=== PATIENT | female | born 1945 | race Caucasian/White ===

== ENCOUNTER → 2016-08-11 | Outpatient (CLI) | payer OTHER, MEDICARE ==
[~2016-08-11] MED LIST: AMOX875T PO; ASPI-232 PO; CALCTAB5 PO; DIPH-437 PO; GABA-112 PO; GABA-113 PO; IBUP-1050 PO; NRN100; SIMV5TAB2 PO
--- NOTE | 2016-08-11 15:51 | DIAGNOSTIC IMAGING REPORT ---
CT OF THE CHEST WITHOUT IV CONTRAST CLINICAL HISTORY: Follow-up pulmonary nodule. COMPARISON STUDY: Chest CT March 29, 2016 and PET/CT April 25, 2016. CT DOSE: 165.77 mGycm TECHNIQUE: Axial images of the chest were obtained without IV contrast. Images were reviewed in the axial, sagittal, and coronal planes. IV contrast was not administered for this examination. FINDINGS: No enlarged axillary, mediastinal or hilar lymph nodes are present. The size of the heart is at the upper limits of normal. There are postsurgical findings within the left breast and left axilla. The 2.3 cm left apical subpleural irregular opacity with architectural distortion is unchanged since CT of March 29, 2016. The previously described left superior hilar nodular foci on PET/CT of April 25, 2016 are less conspicuous on this exam and have likely resolved. The appearance of the chest is unchanged since initial chest CT. There is no pneumothorax or pleural effusion. Bony thorax and upper abdomen are unremarkable. There are old left-sided rib deformities. IMPRESSION: Stable 2.3 cm irregular subpleural left apical opacity which favors scarring. The additional nodular foci shown on recent PET/CT are less conspicuous and have likely resolved. The findings on this exam are likely benign. A follow chest CT in 6 months to ensure stability is recommended. Electronically signed by: Chano Acosta M.D. 08/11/2016 3:49 PM Dictated Date/Time: 08/11/2016 3:39 PM
== END | disposition home or self-care (01) ==
LOC: C.CTS 15:27
PROVIDERS: ATTEND Internal Medicine Pulmonary Disease
DX: R91.1 Solitary pulmonary nodule (principal); R91.8 Other nonspecific abnormal finding of lung field

== ENCOUNTER 2016-09-04 18:02 | Emergency (ER) | payer OTHER, MEDICARE ==
[~2016-09-04 18:02] MED LIST changes: -AMOX875T PO; -GABA-112 PO; -GABA-113 PO; -IBUP-1050 PO
[2016-09-04 18:03] VITALS: TEMP 36.2
[2016-09-04] MEDS ORDERED: SODIUM CHLORIDE 0.9% 1000ML 1,000 ML IV STA (18:11)
[2016-09-04] MEDS ORDERED: ONDANSETRON INJ 2 MG/ML 2 ML VIAL IV STA (18:11)
[2016-09-04 18:16] VITALS: O2SAT 97
--- NOTE | 2016-09-04 18:19 | EMERGENCY ROOM VISIT NOTE ---
History Report prepared by Julisa: Toñito Fields Under the Supervision of: Dr. Wellington Encarnacion M.D. First contact with patient: 18:04 Chief Complaint: DIZZY Stated Complaint: DIZZY History of Present Illness The patient is a 71 year old female who presents to the Emergency Room with complaints of lightheadedness that began this evening. She was sitting down with her eating dinner when she began to sweat. She knew that she was then going to pass out soon due to her having experienced this in the past. She then walked outside to her car before she lost consciousness. When she entered her car, she passed out and then when she awoke, she vomited. She was unconscious for about 60 seconds. She denies any room spinning or movement sensation. She notes when this happens, she gets mildly short of breath. She denies any chest pain. The last time this happened to her was in November of 2015. She notes that she has been at baseline with her health recently, and she is unsure what may have caused this episode. She takes Gabapentin regularly, and has subclavian steel syndrome. Source of History: patient, spouse/significant other Onset: This evening Position: other (global) Symptom Intensity: moderate Quality: other (Lightheadedness) Timing: constant Associated Symptoms: + LOC, + SOB, + vomiting, No chest pain Review of Systems See HPI for pertinent positives & negatives. A total of 10 systems reviewed and were otherwise negative. Past Medical & Surgical Medical Problems: (1) Breast cancer (2) Hyperlipidemia (3) Radicular pain of left upper extremity Surgical Problems: (1) H/O partial mastectomy Family History Patient reports no known family medical history. Social History Smoking Status: Never Smoker Alcohol Use: occasionally Drug Use: none Marital Status: Housing Status: lives with significant other Occupation Status: employed Current/Historical Medications Scheduled Aspirin (Aspir-81), 1 TAB PO DAILY Ibuprofen (Advil), 200 MG PO prn Simvastatin (Zocor), 5 MG PO QPM Scheduled PRN Acetaminophen/Diphenhydramine (Tylenol Pm), 1 TAB PO HS PRN for prn Gabapentin (Neurontin), 300 MG PO 2-3xsday PRN for Pain Allergies Coded Allergies: No Known Allergies (Unverified , 03/28/16) Physical Exam Vital Signs Date Time Temp Pulse Resp B/P Pulse Ox O2 Delivery O2 Flow Rate FiO2 4/30/17 21:49 68 18 133/71 96 Room Air 09/04/16 20:41 63 136/69 95 145/86 73 135/67 09/04/16 20:05 68 16 120/69 96 Room Air 09/04/16 18:16 97 Room Air 09/04/16 18:09 63 09/04/16 18:03 36.2 72 18 113/71 96 Room Air Physical Exam GENERAL: Patient is in no acute distress. HEENT: No acute trauma, normocephalic atraumatic, mucous membranes moist, no nasal congestion, no scleral icterus. Pupils are equal and reactive to light. NECK: No stridor, no adenopathy, no meningismus, trachea is midline. LUNGS: Clear to auscultation bilaterally, no wheeze, no rhonchi, breath sounds equal. HEART: Without murmurs gallops or rubs, regular rate and rhythm. ABDOMEN: Soft, nontender, bowel sounds positive, no hernias, no peritonitis. EXTREMITIES: No cyanosis or edema, full range of motion of all the joints without pain or difficulty, no signs for acute trauma. NEUROLOGIC: Oriented x 3, no acute motor or sensory deficits, no focal weakness. SKIN: Sweaty, pale, no jaundice or rash. Medical Decision & Procedures ER Provider Diagnostic Interpretation: X-ray results as stated below per interpretation by me and the radiologist: CHEST ONE VIEW PORTABLE CLINICAL HISTORY: Altered mental status. Weakness. COMPARISON STUDY: Chest CT August 11, 2016. FINDINGS: Left axillary surgical clips are noted. Linear left apical opacity is unchanged and favors scarring. There is no evidence of pulmonary edema. Cardiac size is normal. Mediastinal contours are normal. No consolidation is identified. IMPRESSION: No acute cardiopulmonary findings. Electronically signed by: Chano Acosta M.D. 09/04/2016 6:30 PM Dictated Date/Time: 09/04/2016 6:29 PM Laboratory Results 09/04/16 18:16 Red Blood Count 4.44, Mean Corpuscular Volume 98.2, Mean Corpuscular Hemoglobin 32.9, Mean Corpuscular Hemoglobin Concent 33.5, Mean Platelet Volume 9.5, Neutrophils (%) (Auto) 59.3, Lymphocytes (%) (Auto) 31.3, Monocytes (%) (Auto) 8.2, Eosinophils (%) (Auto) 0.9, Basophils (%) (Auto) 0.2, Neutrophils # (Auto) 5.55, Lymphocytes # (Auto) 2.93, Monocytes # (Auto) 0.77, Eosinophils # (Auto) 0.08, Basophils # (Auto) 0.02 09/04/16 18:16 Test 09/04/16 18:16 09/04/16 20:04 White Blood Count 9.36 K/uL (4.8-10.8) Red Blood Count 4.44 M/uL (4.2-5.4) Hemoglobin 14.6 g/dL (12.0-16.0) Hematocrit 43.6 % (37-47) Mean Corpuscular Volume 98.2 fL (80-100) Mean Corpuscular Hemoglobin 32.9 pg (25-34) Mean Corpuscular Hemoglobin Concent 33.5 g/dl (32-36) Platelet Count 241 K/uL (130-400) Mean Platelet Volume 9.5 fL (7.4-10.4) Neutrophils (%) (Auto) 59.3 % Lymphocytes (%) (Auto) 31.3 % Monocytes (%) (Auto) 8.2 % Eosinophils (%) (Auto) 0.9 % Basophils (%) (Auto) 0.2 % Neutrophils # (Auto) 5.55 K/uL (1.4-6.5) Lymphocytes # (Auto) 2.93 K/uL (1.2-3.4) Monocytes # (Auto) 0.77 K/uL (0.11-0.59) Eosinophils # (Auto) 0.08 K/uL (0-0.5) Basophils # (Auto) 0.02 K/uL (0-0.2) RDW Standard Deviation 45.4 fL (36.4-46.3) RDW Coefficient of Variation 12.6 % (11.5-14.5) Immature Granulocyte % (Auto) 0.1 % Immature Granulocyte # (Auto) 0.01 K/uL (0.00-0.02) Anion Gap 9.0 mmol/L (3-11) Estimated GFR () 87.2 Estimated GFR (Non- 75.2 BUN/Creatinine Ratio 17.7 (10-20) Calcium Level 9.2 mg/dl (8.5-10.1) Magnesium Level 2.0 mg/dl (1.8-2.4) Total Bilirubin 0.3 mg/dl (0.2-1) Aspartate Amino Transf (AST/SGOT) 25 U/L (15-37) Alanine Aminotransferase (ALT/SGPT) 28 U/L (12-78) Alkaline Phosphatase 72 U/L (45-117) Total Protein 6.7 gm/dl (6.4-8.2) Albumin 3.8 gm/dl (3.4-5.0) Globulin 2.9 gm/dl (2.5-4.0) Albumin/Globulin Ratio 1.3 (0.9-2) Thyroid Stimulating Hormone (TSH) 5.170 uIu/ml (0.300-4.500) Free Thyroxine 1.08 ng/dl (0.80-1.60) Bedside Troponin I 0.000 ng/ml (0-0.045) Laboratory results reviewed by me. Medications Administered Medications (Trade) Dose Ordered Sig/Mai Route Start Time Stop Time Status Last Admin Dose Admin Ondansetron HCl 4 mg 4 mg NOW STAT IV 09/04/16 18:11 09/04/16 18:13 DC 09/04/16 18:24 4 MG Sodium Chloride (Nss 1000ml) 1,000 ml @ 999 mls/hr Q1H1M STAT IV 09/04/16 18:11 09/04/16 19:13 DC 09/04/16 18:24 999 MLS/HR ECG Indication: syncope Rate (beats per minute): 61 Rhythm: normal sinus Findings: no acute ischemic change, no ectopy ED Course 1803: The patient was evaluated in room C10. A complete history and physical exam was performed. 1810: Ordered Sodium Chloride 1000 ml @ 999 mls/hr IV, Zofran Inj 4 mg IV 2044: After reevaluation, the patient feels significantly better. 2053: The patient's orthostatic vital signs were negative. 2129: The patient's urine drip was negative for infection. 2139: Reevaluated the patient. Discussed results and discharge instructions: She verbalized understanding and agreement. The patient is ready for discharge. Medical Decision Differential diagnosis includes but is not limited to hypotension, dysrhythmia, cardiac ischemia, anemia, electrolyte imbalance, dehydration, UTI, and vertigo. There is no leukocytosis or concerning anemia. No significant electrolyte abnormality, kidney failure or hepatitis. The patient appears to be in a euthyroid state. A urine dip does not show evidence for infection. Orthostatic vital signs are negative. EKG shows a normal sinus rhythm, no acute ischemia. Cardiac enzyme testing 2 is not consistent with acute cardiac injury. Chest film shows no pneumonia, mediastinal widening or CHF. On exam, there were no focal neurologic deficits. The patient received IV saline and IV Zofran, she feels markedly better and is now without any complaints. The cause for this presentation is unclear. She has had similar issues in the past. I do feel she is stable for discharge with outpatient follow-up. Impression Primary Impression: Near syncope Additional Impression: Vomiting Scribe Attestation The scribe's documentation has been prepared under my direction and personally reviewed by me in its entirety. I confirm that the note above accurately reflects all work, treatment, procedures, and medical decision making performed by me. Departure Information Dispostion Home / Self-Care Referrals Yana Castro D.O. (PCP) Forms HOME CARE DOCUMENTATION FORM, IMPORTANT VISIT INFORMATION Patient Instructions My [facility] Additional Instructions fluids rest see karina meade this week for a recheck return if worsening testing today was all ok Problem Qualifiers
[2016-09-04 18:30] LABS: BASO % 0.2 %; BASO ABS # 0.02 K/uL (0-0.2); COMPLETE YES; EOS % 0.9 %; HEMATOCRIT 43.6 % (37-47); IG% 0.1 %; LYMPH % 31.3 %; LYMPH ABS # 2.93 K/uL (1.2-3.4); MEAN CELL VOLUME 98.2 fL (80-100); MEAN CORPUSCULAR HEMOGLOBIN 32.9 pg (25-34); MEAN CORPUSCULAR HGB CONC 33.5 g/dl (32-36); MEAN PLATELET VOLUME 9.5 fL (7.4-10.4); MONO % 8.2 %; NEUT % 59.3 %; PLATELET COUNT 241 K/uL (130-400); RED BLOOD COUNT 4.44 M/uL (4.2-5.4); WHITE BLOOD COUNT 9.36 K/uL (4.8-10.8)
--- NOTE | 2016-09-04 18:31 | DIAGNOSTIC IMAGING REPORT ---
CHEST ONE VIEW PORTABLE CLINICAL HISTORY: Altered mental status. Weakness. COMPARISON STUDY: Chest CT August 11, 2016. FINDINGS: Left axillary surgical clips are noted. Linear left apical opacity is unchanged and favors scarring. There is no evidence of pulmonary edema. Cardiac size is normal. Mediastinal contours are normal. No consolidation is identified. IMPRESSION: No acute cardiopulmonary findings. Electronically signed by: Chano Acosta M.D. 09/04/2016 6:30 PM Dictated Date/Time: 09/04/2016 6:29 PM
[2016-09-04 18:52] LABS: ALT/SGPT 28 U/L (12-78); AST/SGOT 25 U/L (15-37); BLOOD UREA NITROGEN 14 mg/dl (7-18); BUN/CREATININE RATIO 17.7 (10-20); CALCIUM 9.2 mg/dl (8.5-10.1); CARBON DIOXIDE 29 mmol/L (21-32); CHLORIDE 107 mmol/L (98-107); GLUCOSE 94 mg/dl (70-99); POTASSIUM 3.5 mmol/L (3.5-5.1); SODIUM 145 mmol/L (136-145)
[2016-09-04] MEDS ORDERED: GABA-113 PO (18:57)
[2016-09-04] MEDS ORDERED: IBUP-1050 PO (18:57)
[2016-09-04 19:03] LABS: ALB/GLOB RATIO 1.3 (0.9-2); ALKALINE PHOSPHATASE 72 U/L (45-117)
[2016-09-04 21:49] VITALS: BP 133/71; PULSE 68; O2SAT 96
[2017-02-03] MEDS ORDERED: AMOX875T PO (18:19)
== END 2016-09-04 21:53 | disposition home or self-care (01) ==
LOC: C.EDB 18:03 → C.EDC 21:53
DX: R55 Syncope and collapse (principal); R11.10 Vomiting, unspecified; E78.5 Hyperlipidemia, unspecified; Z85.3 Personal history of malignant neoplasm of breast; Z90.10 Acquired absence of unspecified breast and nipple; Z79.82 Long term (current) use of aspirin; Z79.899 Other long term (current) drug therapy

== ENCOUNTER → 2017-01-17 | Outpatient (CLI) | payer OTHER, MEDICARE ==
[~2017-01-17] MED LIST changes: +AMOX875T PO; -CALCTAB5 PO; +GABA-112 PO; +GABA-113 PO; +IBUP-1050 PO; -NRN100
--- NOTE | 2017-01-18 14:20 | MAMMOGRAPHY REPORT ---
BILATERAL DIGITAL SCREENING MAMMOGRAM TOMOSYNTHESIS WITH CAD: 01/17/2017 CLINICAL HISTORY: Routine screening. Patient has no complaints. TECHNIQUE: Breast tomosynthesis in addition to standard 2D mammography was performed. Current study was also evaluated with a Computer Aided Detection (CAD) system. COMPARISON: Comparison is made to exams dated: 12/15/2015 mammogram, 06/17/2014 mammogram, 05/29/2012 ma mmogram, 01/18/2011 mammogram, 01/05/2010 mammogram - [facility], and 12/16/2008. BREAST COMPOSITION: There are scattered areas of fibroglandular density in both breasts. FINDINGS: There are stable postsurgical changes in the left breast, with skin irregularity and asymm etry of the size of the breasts. There are benign rim and dystrophic calcifications in the breasts. No new suspicious mass, architectural distortion or cluster of microcalcifications is seen. IMPRESSION: ACR BI-RADS CATEGORY 1: NEGATIVE There is no mammographic evidence of malignancy. A 1 year screening mammogram is recommended. The pa tient will receive written notification of the results. Approximately 10% of breast cancers are not detected with mammography. A negative mammographic report should not delay biopsy if a clinically suggestive mass is present. Juliette Lott M.D. ay/:01/17/2017 17:53:50 [employer] Manager: Sudha HDEZ)(Nelly), [facility] letter sent: Normal 1/2 BI-RADS Code: ACR BI-RADS Category 1: Negative
== END | disposition home or self-care (01) ==
LOC: C.MAMM 11:50
PROVIDERS: ATTEND Family Medicine
DX: Z12.31 Encounter for screening mammogram for malignant neoplasm of breast (principal); Z85.3 Personal history of malignant neoplasm of breast

== ENCOUNTER 2017-01-31 11:25 | Inpatient (IN) | payer OTHER, MEDICARE ==
[~2017-01-31] VITALS: Ht 160 cm; Wt 58.7 kg
[~2017-01-31 11:25] MED LIST changes: -AMOX875T PO; -GABA-112 PO
[2017-01-31] MEDS ORDERED: SODIUM CHLORIDE 0.9% 1000ML 1,000 ML IV STA (12:01)
[2017-01-31 12:05] LABS: BASO % 0.4 %; BASO ABS # 0.03 K/uL (0-0.2); COMPLETE YES; EOS % 1.4 %; HEMATOCRIT 45.4 % (37-47); IG% 0.3 %; LYMPH % 28.2 %; LYMPH ABS # 1.98 K/uL (1.2-3.4); MEAN CELL VOLUME 95.2 fL (80-100); MEAN CORPUSCULAR HEMOGLOBIN 32.1 pg (25-34); MEAN CORPUSCULAR HGB CONC 33.7 g/dl (32-36); MEAN PLATELET VOLUME 9.6 fL (7.4-10.4); MONO % 8.1 %; NEUT % 61.6 %; PLATELET COUNT 237 K/uL (130-400); RED BLOOD COUNT 4.77 M/uL (4.2-5.4); WHITE BLOOD COUNT 7.03 K/uL (4.8-10.8)
--- NOTE | 2017-01-31 12:10 | DIAGNOSTIC IMAGING REPORT ---
CHEST ONE VIEW PORTABLE CLINICAL HISTORY: syncopal dyspnea COMPARISON STUDY: 09/04/2016 FINDINGS: The bones soft tissues and hemidiaphragms are normal. The cardiomediastinal silhouette is normal. The lungs are clear. The pulmonary vasculature is normal. Mild stable emphysematous change. Stable left axillary dissection postoperative change. IMPRESSION: No acute process. The above report was generated using voice recognition software. It may contain grammatical, syntax or spelling errors. Electronically signed by: Deny Luther M.D. 01/31/2017 12:09 PM Dictated Date/Time: 01/31/2017 12:08 PM
--- NOTE | 2017-01-31 12:26 | EMERGENCY ROOM VISIT NOTE ---
History Report prepared by Julisa: Renetta Padilla Under the Supervision of: Dr. Tobi Ocampo M.D. First contact with patient: 11:49 Chief Complaint: SYNCOPE (NEAR SYNCOPE) Stated Complaint: SYNCOPAL EPISODE History of Present Illness The patient is a 71 year old female who presents to the Emergency Room with complaints of an episode of syncope occurring [employer]. The patient was meeting with someone at [facility] this morning. Around 10am she started to feel lightheaded and nauseated. She had some lower abdominal cramping and felt like she might need to have a bowel movement. The patient went into the bathroom of [facility] and her symptoms persisted. She sat down on the ground because she felt like she was going to pass out. She thinks that she did lose consciousness. She did not fall because she was already on the ground. Someone came into the bathroom and found her and called an ambulance. The patient was brought to the ED for further evaluation. She states that this has happened in the past and that this is the third episode she has experienced. She had cold symptoms over the weekend but was feeling fine today. She denies fevers, headache, numbness, weakness, chest pain, shortness of breath, hematochezia, and melena. She was not incontinent during her episode today and did not bite her tongue. She does not have any history of seizures. The patient states that she is feeling better now but is experiencing some nausea. Source of History: patient, spouse/significant other Onset: [employer] Position: other (global) Quality: other (syncope) Timing: other (episode) Associated Symptoms: + LOC, + nausea, + abdominal pain, No fevers, No headache, No chest pain, No SOB, No melena, No hematochezia, No weakness, No numbness Note: Pt was feeling lightheaded. Pt denies incontinence. Review of Systems See HPI for pertinent positives & negatives. A total of 10 systems reviewed and were otherwise negative. Past Medical & Surgical Medical Problems: (1) Breast cancer (2) Hyperlipidemia (3) Radicular pain of left upper extremity (4) Subclavian steal syndrome (5) Syncope and collapse Surgical Problems: (1) H/O partial mastectomy Old medical records were reviewed. Nurse's notes were reviewed and I agree with. Family History Patient reports no known family medical history. Social History Smoking Status: Never Smoker Alcohol Use: occasionally Drug Use: none Marital Status: Housing Status: lives with significant other Occupation Status: employed Current/Historical Medications Scheduled Aspirin (Aspir-81), 1 TAB PO DAILY Gabapentin (Neurontin), 100 MG PO DAILY Simvastatin (Zocor), 5 MG PO DAILY Allergies Coded Allergies: No Known Allergies (Unverified , 01/31/17) Physical Exam Vital Signs Date Time Temp Pulse Resp B/P (MAP) Pulse Ox O2 Delivery O2 Flow Rate FiO2 01/31/17 13:32 54 18 138/88 96 Room Air 01/31/17 12:27 60 16 116/77 99 Room Air 01/31/17 11:35 99 Room Air 01/31/17 11:33 71 01/31/17 11:30 36.4 60 20 140/76 97 Room Air Physical Exam General: Well developed well nourished mildly ill appearing older female in no acute distress, breathing comfortably on room air. Normal speech. Alert and oriented x3, answering questions appropriately. HEENT: Normal cephalic atraumatic. Pupils are equal round and reactive to light. Extraocular movements are intact. Oropharynx is pink with moist mucous membranes. No swelling of the mouth lips or tongue. Neck: Supple with a midline trachea. No meningeal signs or stiffness, no JVD or bruits. No Stridor. Chest: Clear to auscultation bilaterally. No wheezes or rhonchi. No increased work of breathing. Heart: regular rate and rhythm. Abdomen: Soft nontender, nondistended without rebound guarding or rigidity. Extremities: No cyanosis clubbing or edema. No calf tenderness or assymetry Spine/Back. Non tender to palpation. No CVA tenderness Skin: Good turgor without rashes. Neurologic exam: Cranial nerves two through 12 are intact. Motor and sensation are intact and symmetrical throughout. Medical Decision & Procedures ER Provider Diagnostic Interpretation: Radiology results as stated below per my review and radiologist interpretation: CHEST ONE VIEW PORTABLE CLINICAL HISTORY: syncopal dyspnea COMPARISON STUDY: 09/04/2016 FINDINGS: The bones soft tissues and hemidiaphragms are normal. The cardiomediastinal silhouette is normal. The lungs are clear. The pulmonary vasculature is normal. Mild stable emphysematous change. Stable left axillary dissection postoperative change. IMPRESSION: No acute process. The above report was generated using voice recognition software. It may contain grammatical, syntax or spelling errors. Electronically signed by: Deny Luther M.D. 01/31/2017 12:09 PM Dictated Date/Time: 01/31/2017 12:[address] HEAD WITHOUT CONTRAST (CT) CLINICAL HISTORY: weakness, syncope COMPARISON STUDY: No previous studies for comparison. TECHNIQUE: Axial CT of the brain is performed from the vertex to the skull base. IV contrast was not administered for this examination. A dose lowering technique was utilized adhering to the principles of ALARA. CT DOSE: 638.56 mGycm FINDINGS: No intra or extra-axial mass lesions are visualized. There is no CT evidence of acute cortical infarction. There is no evidence of midline shift. There is no acute hemorrhage. No calvarial fractures are visualized. There are patchy white matter hypodensities likely on a small vessel basis. There is no evidence of pathologic ventricular dilatation. There is no evidence of acute sinusitis IMPRESSION: No acute intracranial findings Electronically signed by: Mat Corrales M.D. 01/31/2017 2:41 PM Dictated Date/Time: 01/31/2017 2:40 PM ABD/PELVIS IV CONTRAST ONLY CT DOSE: 492.39 mGycm HISTORY: Pain. Nausea. eval for colitis TECHNIQUE: Multiaxial CT images of the abdomen and pelvis were performed following the use of intravenous contrast. A dose lowering technique was utilized adhering to the principles of ALARA. COMPARISON STUDY: None. FINDINGS: Lung bases are clear. Fatty infiltration of liver. Anterior aspect of the right hepatic lobe shows a region of diminished density measuring 3.2 x 1.8 cm. This possibly relates to a region of fatty replacement and/or fat sparing. It potentially is seen in retrospect on a PET scan dated 04/25/2016. The colonic bowel pattern suggests mild wall thickening throughout the bulk of the colon suggesting nonspecific colitis. There is no evidence for abscess or collection. Bladder is midline. There is no significant abdominal pelvic or inguinal adenopathy. There is trace amount of pericolonic infiltrative change involving the descending as well as descending colon. IMPRESSION: 1. Mild nonspecific colitis. 2. No evidence for abscess collection or obstruction. 3. Focal fatty replacement of the liver The above report was generated using voice recognition software. It may contain grammatical, syntax or spelling errors. Electronically signed by: Deny Luther M.D. 01/31/2017 2:55 PM Dictated Date/Time: 01/31/2017 2:49 PM Laboratory Results 01/31/17 11:20 Red Blood Count 4.77, Mean Corpuscular Volume 95.2, Mean Corpuscular Hemoglobin 32.1, Mean Corpuscular Hemoglobin Concent 33.7, Mean Platelet Volume 9.6, Neutrophils (%) (Auto) 61.6, Lymphocytes (%) (Auto) 28.2, Monocytes (%) (Auto) 8.1, Eosinophils (%) (Auto) 1.4, Basophils (%) (Auto) 0.4, Neutrophils # (Auto) 4.33, Lymphocytes # (Auto) 1.98, Monocytes # (Auto) 0.57, Eosinophils # (Auto) 0.10, Basophils # (Auto) 0.03 01/31/17 11:20 Test 01/31/17 11:20 01/31/17 13:25 01/31/17 14:25 White Blood Count 7.03 K/uL (4.8-10.8) Red Blood Count 4.77 M/uL (4.2-5.4) Hemoglobin 15.3 g/dL (12.0-16.0) Hematocrit 45.4 % (37-47) Mean Corpuscular Volume 95.2 fL (80-100) Mean Corpuscular Hemoglobin 32.1 pg (25-34) Mean Corpuscular Hemoglobin Concent 33.7 g/dl (32-36) Platelet Count 237 K/uL (130-400) Mean Platelet Volume 9.6 fL (7.4-10.4) Neutrophils (%) (Auto) 61.6 % Lymphocytes (%) (Auto) 28.2 % Monocytes (%) (Auto) 8.1 % Eosinophils (%) (Auto) 1.4 % Basophils (%) (Auto) 0.4 % Neutrophils # (Auto) 4.33 K/uL (1.4-6.5) Lymphocytes # (Auto) 1.98 K/uL (1.2-3.4) Monocytes # (Auto) 0.57 K/uL (0.11-0.59) Eosinophils # (Auto) 0.10 K/uL (0-0.5) Basophils # (Auto) 0.03 K/uL (0-0.2) RDW Standard Deviation 46.0 fL (36.4-46.3) RDW Coefficient of Variation 13.3 % (11.5-14.5) Immature Granulocyte % (Auto) 0.3 % Immature Granulocyte # (Auto) 0.02 K/uL (0.00-0.02) Anion Gap 13.0 mmol/L (3-11) Est Creatinine Clear Calc Drug Dose 43.9 ml/min Estimated GFR () 66.6 Estimated GFR (Non- 57.4 BUN/Creatinine Ratio 14.6 (10-20) Calcium Level 9.6 mg/dl (8.5-10.1) Magnesium Level 2.3 mg/dl (1.8-2.4) Total Bilirubin 0.4 mg/dl (0.2-1) Aspartate Amino Transf (AST/SGOT) 29 U/L (15-37) Alanine Aminotransferase (ALT/SGPT) 22 U/L (12-78) Alkaline Phosphatase 85 U/L (45-117) Total Creatine Kinase 107 U/L (26-192) Creatine Kinase MB 0.8 ng/ml (0.5-3.6) Creatine Kinase MB Ratio 0.7 (0-3.0) Troponin I < 0.015 ng/ml (0-0.045) Total Protein 7.7 gm/dl (6.4-8.2) Albumin 3.8 gm/dl (3.4-5.0) Globulin 3.9 gm/dl (2.5-4.0) Albumin/Globulin Ratio 1.0 (0.9-2) Thyroid Stimulating Hormone (TSH) 6.740 uIu/ml (0.300-4.500) Chemistry Specimen Hemolysis Urine Color DK YELLOW Urine Appearance CLEAR (CLEAR) Urine pH 6.5 (4.5-7.5) Urine Specific [place] 1.018 (1.000-1.030) Urine Protein 1+ (NEG) Urine Glucose (UA) NEG (NEG) Urine Ketones TRACE (NEG) Urine Occult Blood NEG (NEG) Urine Nitrite NEG (NEG) Urine Bilirubin NEG (NEG) Urine Urobilinogen NEG (NEG) Urine Leukocyte Esterase TRACE (NEG) Urine WBC (Auto) 1-5 /hpf (0-5) Urine RBC (Auto) 0-4 /hpf (0-4) Urine Hyaline Casts (Auto) 5-10 /lpf (0-5) Urine Epithelial Cells (Auto) >30 /lpf (0-5) Urine Bacteria (Auto) NEG (NEG) Date/Time Source Procedure Growth Status 01/31/17 14:10 Stool C.difficile Toxin B Gene (PCR) - Final No C. difficile toxin B gene detected Complete Laboratory studies as stated above per my review. Medications Administered Medications (Trade) Dose Ordered Sig/Mai Route Start Time Stop Time Status Last Admin Dose Admin Sodium Chloride 1,000 ml @ 999 mls/hr Q1H1M STAT IV 01/31/17 12:01 01/31/17 13:01 DC 01/31/17 12:20 999 MLS/HR ECG Indication: syncope Rate (beats per minute): 61 Rhythm: normal sinus Findings: no acute ischemic change, no ectopy Comparison ECG Date: 09/04/2016 Change: no significant change ED Course 1149: Past medical records reviewed. The patient was evaluated in room A3, and a complete history and physical examination were performed. 1201: NSS 1000 ml @ 999 mls/hr IV 1231: Upon reevaluation the patient is feeling better. 1349: I reassessed the patient. She had a bowel movement and states that she may have had some bright red blood in her stool. She will be going for CT. 1351: I spoke with Dr. Hayes. We discussed the patient's case. The patient will be evaluated by the [facility] for further management. 1500: I reassessed the patient at this time. She is feeling better and resting comfortably. I discussed the results and treatment plan with the patient. I answered all pertaining questions that she had. She expressed understanding and verbalized agreement. Medical Decision Differential diagnoses includes syncope, arrhythmia, vasovagal episode, intracranial process, electrolyte or metabolic abnormality. This patient comes in as described above. She was placed room A3. She comes in after having a near syncopal episode. She's had these before. She did have some lower abdominal cramps. She have a history subclavian steal. She had no chest pain or shortness of breath. IV access established and she was hydrated with IV normal saline . She given Zofran 4 mg IV and felt significantly better. She has no white count or fever to suggest infection. She's not anemic with a hemoglobin in the 14 range. CAT scan of her head is unremarkable. I did a CAT scan of her abdomen with IV contrast which shows a mild colitis. This was obtained as well the patient was here she had an episode where she thought she could've had a small amount of blood in her bowel movement. We did place a hat in the toilet to collect a stool sample however the patient did not have any further bowel movements or bleeding since she was in the ER. She's had nothing to suggest acute coronary syndrome or arrhythmia. I do think she needs to be admitted for observation and further treatment and evaluation given the fact that she had a syncopal episode and now may have a GI bleed. I have typed and screened her. I have consulted Dr. Cheung. He saw the patient ER will admit her for these measures. Medication Reconcilliation Current Medication List: was personally reviewed by me Blood Pressure Screening Patient's blood pressure: Normal blood pressure Consults Time Called: 1351 Consulting Physician: Dr. Hayes Returned Call: [address] Hayes. We discussed the patient's case. The patient will be evaluated by the [facility] for further management. Impression Primary Impression: Syncope Additional Impressions: Rectal bleed Colitis Scribe Attestation The scribe's documentation has been prepared under my direction and personally reviewed by me in its entirety. I confirm that the note above accurately reflects all work, treatment, procedures, and medical decision making performed by me. Departure Information Dispostion Being Evaluated By Hospitalist Referrals Yana Castro D.O. (PCP) Patient Instructions My [facility] Health Problem Qualifiers Primary Impression: Syncope Syncope type: unspecified Qualified Codes: R55 - Syncope and collapse
[2017-01-31 12:29] LABS: ALKALINE PHOSPHATASE 85 U/L (45-117); ALT/SGPT 22 U/L (12-78); AST/SGOT 29 U/L (15-37); BLOOD UREA NITROGEN 15 mg/dl (7-18); BUN/CREATININE RATIO 14.6 (10-20); CALCIUM 9.6 mg/dl (8.5-10.1); CARBON DIOXIDE 20 mmol/L (21-32); CHLORIDE 106 mmol/L (98-107); CKMB/CK RATIO 0.7 (0-3.0); GLUCOSE 115 mg/dl (70-99); POTASSIUM 3.3 mmol/L (3.5-5.1); SODIUM 139 mmol/L (136-145)
[2017-01-31] MEDS ORDERED: GABA-112 PO (12:37)
[2017-01-31 13:51] LABS: URINE APPEARANCE CLEAR (CLEAR); URINE BILIRUBIN NEG (NEG); URINE COLOR DK YELLOW; URINE EPITHELIAL CELL AUTO >30 /lpf (0-5); URINE NITRITE NEG (NEG); URINE PH 6.5 (4.5-7.5); URINE SPECIFIC GRAVITY 1.018 (1.000-1.030); UROBILINOGEN NEG (NEG); ZZUR CULT IF INDIC CLEAN CATCH NO
[2017-01-31 13:53] LABS: MANUAL MICROSCOPIC REQUIRED? NO; REVIEW REQ? NO
[2017-01-31] MEDS ORDERED: OPTIRAY 320 IV PRN (14:00)
--- NOTE | 2017-01-31 14:42 | DIAGNOSTIC IMAGING REPORT ---
CT HEAD WITHOUT CONTRAST (CT) CLINICAL HISTORY: weakness, syncope COMPARISON STUDY: No previous studies for comparison. TECHNIQUE: Axial CT of the brain is performed from the vertex to the skull base. IV contrast was not administered for this examination. A dose lowering technique was utilized adhering to the principles of ALARA. CT DOSE: 638.56 mGycm FINDINGS: No intra or extra-axial mass lesions are visualized. There is no CT evidence of acute cortical infarction. There is no evidence of midline shift. There is no acute hemorrhage. No calvarial fractures are visualized. There are patchy white matter hypodensities likely on a small vessel basis. There is no evidence of pathologic ventricular dilatation. There is no evidence of acute sinusitis IMPRESSION: No acute intracranial findings Electronically signed by: Mat Corrales M.D. 01/31/2017 2:41 PM Dictated Date/Time: 01/31/2017 2:40 PM
--- NOTE | 2017-01-31 14:56 | DIAGNOSTIC IMAGING REPORT ---
ABD/PELVIS IV CONTRAST ONLY CT DOSE: 492.39 mGycm HISTORY: Pain. Nausea. eval for colitis TECHNIQUE: Multiaxial CT images of the abdomen and pelvis were performed following the use of intravenous contrast. A dose lowering technique was utilized adhering to the principles of ALARA. COMPARISON STUDY: None. FINDINGS: Lung bases are clear. Fatty infiltration of liver. Anterior aspect of the right hepatic lobe shows a region of diminished density measuring 3.2 x 1.8 cm. This possibly relates to a region of fatty replacement and/or fat sparing. It potentially is seen in retrospect on a PET scan dated 04/25/2016. The colonic bowel pattern suggests mild wall thickening throughout the bulk of the colon suggesting nonspecific colitis. There is no evidence for abscess or collection. Bladder is midline. There is no significant abdominal pelvic or inguinal adenopathy. There is trace amount of pericolonic infiltrative change involving the descending as well as descending colon. IMPRESSION: 1. Mild nonspecific colitis. 2. No evidence for abscess collection or obstruction. 3. Focal fatty replacement of the liver The above report was generated using voice recognition software. It may contain grammatical, syntax or spelling errors. Electronically signed by: Deny Luther M.D. 01/31/2017 2:55 PM Dictated Date/Time: 01/31/2017 2:49 PM
[2017-01-31] MEDS ORDERED: ACETAMINOPHEN 325 MG TAB PO PRN (15:00)
[2017-01-31 15:15] VITALS: BP 158/48; PULSE 67; TEMP 36.9; O2SAT 96; Ht 160 cm; Wt 58.7 kg
[2017-01-31] MEDS ORDERED: POTASSIUM CHLORIDE 10 MEQ TABCR PO STA (15:22)
[2017-01-31] MEDS: NSS + 20MEQ KCL 1000ML 1,000 ML IV SCH (16:25)
[2017-01-31 17:25] LABS: MAGNESIUM 2.3 mg/dl (1.8-2.4)
--- NOTE | 2017-01-31 18:18 | History and Physical ---
History & Physical Date & Time of Service: Jan 31, 2017 at 18:04 Chief Complaint: Subclavian Steal Syndrome, Syncope And Collapse Primary Care Physician: Yana Castro D.O. History of Present Illness Source: patient, spouse The patient is a 71-year-old female who presents to emergency department after a syncopal episode that occurred while at [employer] this morning. She reports that she usually has about 15 minutes warning before these episodes occur. She had a cup of cold coffee while there, which she reports retrospectively has been a precipitating factor in the past. She reports that she had an episode of liquid diarrhea shortly after having the coffee, and since that time his had 2 further episodes, with a third time she looks no severe was blood in the bowl. She does have history of hemorrhoids. She did not have any abdominal pain. She has had overall decreased oral intake since developing a head cold about 4 days ago, and did this morning have a primarily carbohydrate snack before the coffee. We have discussed in the past the possibility that hypoglycemia, and in this case postprandial hypoglycemia, as a contributing factor to these episodes Past Medical/Surgical History Medical Problems: (1) Breast cancer Status: Resolved Surgical Problems: (1) H/O partial mastectomy Status: Resolved Family History Patient reports no known family medical history. Social History Smoking Status: Never Smoker Smokeless Tobacco Use: No Alcohol Use: none Drug Use: none Marital Status: Housing status: lives with family Occupational Status: employed Immunizations History of Influenza Vaccine: Unknown History of Tetanus Vaccine?: Unknown History of Pneumococcal: Unknown History of Hepatitis B Vaccine: Unknown Multi-Drug Resistant Organisms History of MDRO: No Allergies Coded Allergies: No Known Allergies (Unverified , 01/31/17) Home Medications Scheduled Aspirin (Aspir-81), 1 TAB PO DAILY Gabapentin (Neurontin), 100 MG PO DAILY Simvastatin (Zocor), 5 MG PO DAILY Review of Systems The patient denies chest pain, palpitations, shortness of breath, cough, lower extremity swelling, vision change, hearing change, sore throat, fevers, chills, sweats, weight change, nausea, vomiting, constipation, abdominal pain, pelvic pain, blood in stool, dysuria, urinary frequency or urgency, headache, rash, abnormal bruising or bleeding, imbalance, focal weakness, numbness or tingling in arms or legs, generalized arthralgias or myalgias, back or neck pain, night sweats, or allergy symptoms. The review of systems is otherwise negative other than for that already noted above, and at least 10 systems have been reviewed. Physical Exam Vital Signs Date Time Temp Pulse Resp B/P (MAP) Pulse Ox O2 Delivery O2 Flow Rate FiO2 01/31/17 15:15 36.9 67 20 158/48 96 Room Air 01/31/17 14:42 69 12 140/71 96 Room Air 01/31/17 14:40 63 17 140/71 96 Room Air 01/31/17 13:32 54 18 138/88 96 Room Air 01/31/17 12:27 60 16 116/77 99 Room Air 01/31/17 11:35 99 Room Air 01/31/17 11:33 71 01/31/17 11:30 36.4 60 20 140/76 97 Room Air The patient is awake, well-developed and adequately nourished, alert and oriented 3, normocephalic and atraumatic, lying in bed and in no acute distress. HEENT--PERRL, EOMI, mucous membranes and oropharynx dry. Neck--supple, no JVD or bruits, thyroid normal, trachea midline, no adenopathy. Heart--normal S1 and S2, no extra beats, no murmurs, rubs or gallops. Lungs--clear bilaterally with good air movement, no respiratory distress, no accessory muscle use. Abdomen--normal bowel sounds and soft, nontender and nondistended, no hernias or masses, no organomegaly. Extremities--no cyanosis, clubbing or edema. There are good distal pulses b/l. Dermatologic--normal skin turgor, normal color, warm and dry, no abnormal lymph nodes, no rash. Neurologic--cranial nerves II through XII grossly intact, motor and sensory examination normal. Rheumatologic--normal range of motion, nontender, muscles and joints. Psychiatric--normal affect. Diagnostics Laboratory Results Results Past 24 Hours Test 01/31/17 11:20 01/31/17 13:25 01/31/17 14:25 Range/Units White Blood Count 7.03 4.8-10.8 K/uL Red Blood Count 4.77 4.2-5.4 M/uL Hemoglobin 15.3 12.0-16.0 g/dL Hematocrit 45.4 37-47 % Mean Corpuscular Volume 95.2 80-100 fL Mean Corpuscular Hemoglobin 32.1 25-34 pg Mean Corpuscular Hemoglobin Concent 33.7 32-36 g/dl Platelet Count 237 130-400 K/uL Mean Platelet Volume 9.6 7.4-10.4 fL Neutrophils (%) (Auto) 61.6 % Lymphocytes (%) (Auto) 28.2 % Monocytes (%) (Auto) 8.1 % Eosinophils (%) (Auto) 1.4 % Basophils (%) (Auto) 0.4 % Neutrophils # (Auto) 4.33 1.4-6.5 K/uL Lymphocytes # (Auto) 1.98 1.2-3.4 K/uL Monocytes # (Auto) 0.57 0.11-0.59 K/uL Eosinophils # (Auto) 0.10 0-0.5 K/uL Basophils # (Auto) 0.03 0-0.2 K/uL RDW Standard Deviation 46.0 36.4-46.3 fL RDW Coefficient of Variation 13.3 11.5-14.5 % Immature Granulocyte % (Auto) 0.3 % Immature Granulocyte # (Auto) 0.02 0.00-0.02 K/uL Sodium Level 139 136-145 mmol/L Potassium Level 3.3 3.5-5.1 mmol/L Chloride Level 106 98-107 mmol/L Carbon Dioxide Level 20 21-32 mmol/L Anion Gap 13.0 3-11 mmol/L Blood Urea Nitrogen 15 7-18 mg/dl Creatinine 1.00 0.60-1.20 mg/dl Est Creatinine Clear Calc Drug Dose 43.9 ml/min Estimated GFR () 66.6 Estimated GFR (Non- 57.4 BUN/Creatinine Ratio 14.6 10-20 Random Glucose 115 70-99 mg/dl Calcium Level 9.6 8.5-10.1 mg/dl Magnesium Level 2.3 1.8-2.4 mg/dl Total Bilirubin 0.4 0.2-1 mg/dl Aspartate Amino Transf (AST/SGOT) 29 15-37 U/L Alanine Aminotransferase (ALT/SGPT) 22 12-78 U/L Alkaline Phosphatase 85 45-117 U/L Total Creatine Kinase 107 26-192 U/L Creatine Kinase MB 0.8 0.5-3.6 ng/ml Creatine Kinase MB Ratio 0.7 0-3.0 Troponin I < 0.015 0-0.045 ng/ml Total Protein 7.7 6.4-8.2 gm/dl Albumin 3.8 3.4-5.0 gm/dl Globulin 3.9 2.5-4.0 gm/dl Albumin/Globulin Ratio 1.0 0.9-2 Thyroid Stimulating Hormone (TSH) 6.740 0.300-4.500 uIu/ml Chemistry Specimen Hemolysis Urine Color DK YELLOW Urine Appearance CLEAR CLEAR Urine pH 6.5 4.5-7.5 Urine Specific [place] 1.018 1.000-1.030 Urine Protein 1+ NEG Urine Glucose (UA) NEG NEG Urine Ketones TRACE NEG Urine Occult Blood NEG NEG Urine Nitrite NEG NEG Urine Bilirubin NEG NEG Urine Urobilinogen NEG NEG Urine Leukocyte Esterase TRACE NEG Urine WBC (Auto) 1-5 0-5 /hpf Urine RBC (Auto) 0-4 0-4 /hpf Urine Hyaline Casts (Auto) 5-10 0-5 /lpf Urine Epithelial Cells (Auto) >30 0-5 /lpf Urine Bacteria (Auto) NEG NEG Microbiology Results 01/31/17 C.difficile Toxin B Gene (PCR) - Final, Complete No C. difficile toxin B gene detected 01/31/17 Shiga Toxin Test, Received Pending 01/31/17 Stool Culture, Received Pending Diagnostic Radiology Patient Name: CHARISSA BARLOW Unit Number: [id number] Dictated: 01/31/171207 Transcribed: 01/31/17 1208 MS Printed Date/Time: [~ rep prt dt]/[~ rep prt tm] [~ rep ct labl] - [~ rep ct ivnm] [facility] [address] Dictated: 01/31/17 1208 Transcribed: 01/31/17 1208 MS Printed Date/Time: [~ rep prt dt]/[~ rep prt tm] [~ rep ct labl] - [~ rep ct ivnm] CHEST ONE VIEW PORTABLE CLINICAL HISTORY: syncopal dyspnea COMPARISON STUDY: 09/04/2016 FINDINGS: The bones soft tissues and hemidiaphragms are normal. The cardiomediastinal silhouette is normal. The lungs are clear. The pulmonary vasculature is normal. Mild stable emphysematous change. Stable left axillary dissection postoperative change. IMPRESSION: No acute process. The above report was generated using voice recognition software. It may contain grammatical, syntax or spelling errors. Electronically signed by: Deny Luther M.D. 01/31/2017 12:09 PM Dictated Date/Time: 01/31/2017 12:08 PM The status of this report is Signed. Draft = Not yet reviewed or approved by Radiologist. Signed = Reviewed and approved by Radiologist. <AttendingPhy></AttendingPhy> <FamilyPhy>Yana Castro D.O.</FamilyPhy> < PrimaryPhy>Yana Castro D.O.</PrimaryPhy> <UnitNumber>[id number]</ UnitNumber> <VisitNumber>[id number]</VisitNumber> <PatientName>CHARISSA BARLOW</ PatientName> <DateOfBirth>1945</DateOfBirth> <Location>[facility]</Location> < ServiceDate>01/31/17</ServiceDate> <MNE>ESINDI</MNE> <OrderingPhy>ED, PROTOCOL</ OrderingPhy> <OrderingPhyMNE>f rep ord dr gonzalez</OrderingPhyMNE> <DictatingPhyMNE> f rep dict dr gonzalez</DictatingPhyMNE> <CCListMNE>f rep ct carlos</CCListMNE> < AdmittingPhyMNE>f pt admit dr gonzalez</AdmittingPhyMNE> <AttendingPhyMNE>f pt attend dr gonzalez</AttendingPhyMNE> <ConsultingPhyMNE>f pt consult dr gonzalez</ConsultingPhyMNE> <FamilyPhyMNE>f pt fam dr gonzalez</FamilyPhyMNE> <OtherPhyMNE>f pt other dr gonzalez</OtherPhyMNE> < PrimaryPhyMNE>f pt prim care dr gonzalez</PrimaryPhyMNE> <ReferringPhyMNE>f pt referring dr gonzalez</ReferringPhyMNE> Patient Name: CHARISSA BARLOW Unit Number: [id number] Dictated: 01/31/171439 Transcribed: 01/31/171439 ARG Printed Date/Time: [~ rep prt dt]/[~ rep prt tm] [~ rep ct labl] - [~ rep ct ivnm] [facility] [address] Dictated: 01/31/171439 Transcribed: 01/31/171439 ARG Printed Date/Time: [~ rep prt dt]/[~ rep prt tm] [~ rep ct labl] - [~ rep ct ivnm] CT HEAD WITHOUT CONTRAST (CT) CLINICAL HISTORY: weakness, syncope COMPARISON STUDY: No previous studies for comparison. TECHNIQUE: Axial CT of the brain is performed from the vertex to the skull base. IV contrast was not administered for this examination. A dose lowering technique was utilized adhering to the principles of ALARA. CT DOSE: 638.56 mGycm FINDINGS: No intra or extra-axial mass lesions are visualized. There is no CT evidence of acute cortical infarction. There is no evidence of midline shift. There is no acute hemorrhage. No calvarial fractures are visualized. There are patchy white matter hypodensities likely on a small vessel basis. There is no evidence of pathologic ventricular dilatation. There is no evidence of acute sinusitis IMPRESSION: No acute intracranial findings Electronically signed by: Mat Corrales M.D. 01/31/2017 2:41 PM Dictated Date/Time: 01/31/2017 2:40 PM The status of this report is Signed. Draft = Not yet reviewed or approved by Radiologist. Signed = Reviewed and approved by Radiologist. <AttendingPhy></AttendingPhy> <FamilyPhy>Yana Castro D.O.</FamilyPhy> < PrimaryPhy>Yana Castro D.O.</PrimaryPhy> <UnitNumber>[id number]</ UnitNumber> <VisitNumber>[id number]</VisitNumber> <PatientName>CHARISSA BARLOW</ PatientName> <DateOfBirth>1945</DateOfBirth> <Location>[facility]</Location> < ServiceDate>01/31/17</ServiceDate> <MNE>ESINDI</MNE> <OrderingPhy>Tobi Ocampo M.D.</OrderingPhy> <OrderingPhyMNE>f rep ord dr gonzalez</OrderingPhyMNE> < DictatingPhyMNE>f rep dict dr gonzalez</DictatingPhyMNE> <CCListMNE>f rep ct mne</ CCListMNE> <AdmittingPhyMNE>f pt admit dr gonzalez</AdmittingPhyMNE> <AttendingPhyMNE >f pt attend dr gonzalez</AttendingPhyMNE> <ConsultingPhyMNE>f pt consult dr gonzalez</ConsultingPhyMNE> <FamilyPhyMNE>f pt fam dr gonzalez</FamilyPhyMNE> <OtherPhyMNE>f pt other dr gonzalez</OtherPhyMNE> < PrimaryPhyMNE>f pt prim care dr gonzalez</PrimaryPhyMNE> <ReferringPhyMNE>f pt referring dr gonzalez</ReferringPhyMNE> Patient Name: CHARISSA BARLOW Unit Number: [id number] Dictated: 01/31/171448 Transcribed: 01/31/171448 MS Printed Date/Time: [~ rep prt dt]/[~ rep prt tm] [~ rep ct labl] - [~ rep ct ivnm] [facility] [place] [address] Dictated: 01/31/171448 Transcribed: 01/31/171448 MS Printed Date/Time: [~ rep prt dt]/[~ rep prt tm] [~ rep ct labl] - [~ rep ct ivnm] [~ rep ct add3]] ABD/PELVIS IV CONTRAST ONLY CT DOSE: 492.39 mGycm HISTORY: Pain. Nausea. eval for colitis TECHNIQUE: Multiaxial CT images of the abdomen and pelvis were performed following the use of intravenous contrast. A dose lowering technique was utilized adhering to the principles of ALARA. COMPARISON STUDY: None. FINDINGS: Lung bases are clear. Fatty infiltration of liver. Anterior aspect of the right hepatic lobe shows a region of diminished density measuring 3.2 x 1.8 cm. This possibly relates to a region of fatty replacement and/or fat sparing. It potentially is seen in retrospect on a PET scan dated 04/25/2016. The colonic bowel pattern suggests mild wall thickening throughout the bulk of the colon suggesting nonspecific colitis. There is no evidence for abscess or collection. Bladder is midline. There is no significant abdominal pelvic or inguinal adenopathy. There is trace amount of pericolonic infiltrative change involving the descending as well as descending colon. IMPRESSION: 1. Mild nonspecific colitis. 2. No evidence for abscess collection or obstruction. 3. Focal fatty replacement of the liver The above report was generated using voice recognition software. It may contain grammatical, syntax or spelling errors. Electronically signed by: Deny Luther M.D. 01/31/2017 2:55 PM Dictated Date/Time: 01/31/2017 2:49 PM The status of this report is Signed. Draft = Not yet reviewed or approved by Radiologist. Signed = Reviewed and approved by Radiologist. <AttendingPhy></AttendingPhy> <FamilyPhy>Yana Castro D.O.</FamilyPhy> < PrimaryPhy>Yana Castro D.O.</PrimaryPhy> <UnitNumber>[id number]</ UnitNumber> <VisitNumber>[id number]</VisitNumber> <PatientName>CHARISSA BARLOW</ PatientName> <DateOfBirth>1945</DateOfBirth> <Location>[facility]</Location> < ServiceDate>01/31/17</ServiceDate> <MNE>ESINDI</MNE> <OrderingPhy>Tobi Ocampo M.D.</OrderingPhy> <OrderingPhyMNE>f rep ord dr gonzalez</OrderingPhyMNE> < DictatingPhyMNE>f rep dict dr gonzalez</DictatingPhyMNE> <CCListMNE>f rep ct carlos</ CCListMNE> <AdmittingPhyMNE>f pt admit dr gonzalez</AdmittingPhyMNE> <AttendingPhyMNE >f pt attend dr gonzalez</AttendingPhyMNE> <ConsultingPhyMNE>f pt consult dr gonzalez</ConsultingPhyMNE> <FamilyPhyMNE>f pt fam dr gonzalez</FamilyPhyMNE> <OtherPhyMNE>f pt other dr gonzalez</OtherPhyMNE> < PrimaryPhyMNE>f pt prim care dr ognzalez</PrimaryPhyMNE> <ReferringPhyMNE>f pt referring dr gonzalez</ReferringPhyMNE> EKG EKG shows normal sinus rhythm at 61 bpm, no acute ST-T changes, and no change compared to 09/04/2016 Impression Assessment and Plan Syncope and collapse/subclavian steal syndrome/dehydration-- The patient will be admitted to telemetry for serial cardiac enzymes, cardiac rhythm monitoring and a 2-D echocardiogram with Dopplers. Normal saline with KCl 20 mEq at 125 ML's per hour. Consult Dr. Peterson. Avoid precipitating factors such as hypoglycemia, caffeine intake and any other triggers Nonspecific Colitis/blood in stool/history of hemorrhoids-- We will rehydrate as noted above and treat symptomatically. Would not pursue more aggressively with colonoscopy unless symptoms were to intensify. Hyperlipidemia-- Continue simvastatin 5 mg by mouth every afternoon, and aspirin 81 mg by mouth daily. 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 Y/N: Yes Risk Level: Moderate Given or contraindicated: SCD's Social Service Consult None Apply
--- NOTE | 2017-01-31 18:39 | Cardiology Consultation ---
Cardiology Consultation Date of Consultation: Jan 31, 2017. Requesting Physician: Alexander Reason for Consultation: syncope Pt evaluation today including: conversation w/ patient, physical exam, chart review, lab review, review of studies History of Present Illness The patient is a 71-year-old woman with a history of syncope who has been feeling poorly for well over a day. She states that she recently had a cold and spent most of the day in bed yesterday. Today subsequent to a business meeting she was at [employer] which began to experience some abdominal discomfort. She went to the restroom where she began to have some dizziness, lightheadedness worsening abdominal cramping and diaphoresis. This was also accompanied by an element of nausea. She apparently had a brief episode of syncope and was subsequently transported [facility] for evaluation. She eventually had a bowel movement and worsening abdominal cramping. Throughout the course of today she has reported several episodes of watery bowel movements and worsening abdominal discomfort. She also has a sense currently of chills and feeling cold. She has an element of fatigue. She was not aware of any palpitations associated with her episode earlier today. She did not have any associated chest discomfort. She has had several similar episodes in the past all of which appear to have a similar prodrome. She generally has some gastrointestinal symptoms followed by a brief episode of syncope. Occasionally episodes can be aborted by sitting or lying down. She does report some brief episodes of palpitations that are fleeting and not related to these episodes. They are very infrequent. When she is feeling well she has a very active individual. 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 She can perform strenuous exercise without symptoms of limiting dyspnea or chest discomfort. She was diagnosed with subclavian steal based on MRI images obtain late last year. She does not report symptoms of dizziness or lightheadedness associated with left arm movement or reaching with the left arm but she freely admits that she does not use that side much since she has had breast surgery and radiation at that site. Past Medical/Surgical History Breast cancer status post resection, chemotherapy and radiation Hyper lipidemia Pulmonary nodule Cervical spine disease Surgical history Basal cell removal Left breast lumpectomy Family History Patient reports no known family medical history. No premature coronary disease Social History Smoking Status: Never Smoker History of Alcohol Use: Yes (1 beer or glass of wine a couple times a week) Review of Systems No overt fevers or rigors although she feels quite cold and has chills currently. She did report some bright red blood in her stool earlier today. All Other Systems: Reviewed and Negative Allergies Coded Allergies: No Known Allergies (Unverified , 01/31/17) Medications Current Inpatient Medications Medications (Trade) Dose Ordered Sig/Mai Route Start Time Stop Time Status Last Admin Dose Admin Ioversol (Optiray 320) 111 ml UD PRN IV 01/31/17 14:00 02/04/17 13:59 Potassium Chloride/Sodium Chloride 1,000 ml @ 125 mls/hr Q8H IV 01/31/17 15:45 03/02/17 15:44 01/31/17 16:25 125 MLS/HR Acetaminophen (Tylenol Tab) 650 mg Q4H PRN PO 01/31/17 15:00 03/02/17 14:59 Aspirin (Ecotrin Tab) 81 mg DAILY PO 02/01/17 09:00 03/03/17 08:59 Gabapentin (Neurontin Cap) 100 mg DAILY PO 02/01/17 09:00 03/03/17 08:59 Simvastatin (Zocor Tab) 5 mg DAILY PO 02/01/17 09:00 03/03/17 08:59 Physical Exam Vital Signs Past 12 Hours Date Time Temp Pulse Resp B/P (MAP) Pulse Ox O2 Delivery O2 Flow Rate FiO2 01/31/17 15:15 36.9 67 20 158/48 96 Room Air 01/31/17 14:42 69 12 140/71 96 Room Air 01/31/17 14:40 63 17 140/71 96 Room Air 01/31/17 13:32 54 18 138/88 96 Room Air 01/31/17 12:27 60 16 116/77 99 Room Air 01/31/17 11:35 99 Room Air 01/31/17 11:33 71 01/31/17 11:30 36.4 60 20 140/76 97 Room Air She is alert and oriented x3. Mood affect appear normal. She answered all questions appropriately. HEENT: Sclerae are anicteric. Pupils are equal and reactive to light and accommodation. Extraocular movements were intact. Neuro: Cranial nerves intact Neck: Examination of the submandibular region did not reveal any significant lymphadenopathy. Carotids are palpable bilaterally and free of bruits on auscultation. There was no evidence of jugular venous distention. The thyroid was not enlarged. Lungs: Lungs are clear to auscultation bilaterally. There are no rales wheezes or rhonchi. She has normal respiratory effort without use of accessory muscles. There is normal pulmonary excursion. Cardiac: The rhythm was regular. S1 and S2 were normal. There are no murmurs on examination. The PMI was not markedly displaced on palpation. Abdomen: The abdomen was soft and mildly tender. Extremities: Patient has bilateral radial pulses that are equal in intensity. There is no evidence cyanosis or clubbing. There was no evidence of significant peripheral edema bilaterally. Skin: There are no rashes noted on examination today. Data Laboratory Results: Last 24 Hours Test 01/31/17 11:20 01/31/17 13:25 01/31/17 14:25 White Blood Count 7.03 K/uL Red Blood Count 4.77 M/uL Hemoglobin 15.3 g/dL Hematocrit 45.4 % Mean Corpuscular Volume 95.2 fL Mean Corpuscular Hemoglobin 32.1 pg Mean Corpuscular Hemoglobin Concent 33.7 g/dl Platelet Count 237 K/uL Mean Platelet Volume 9.6 fL Neutrophils (%) (Auto) 61.6 % Lymphocytes (%) (Auto) 28.2 % Monocytes (%) (Auto) 8.1 % Eosinophils (%) (Auto) 1.4 % Basophils (%) (Auto) 0.4 % Neutrophils # (Auto) 4.33 K/uL Lymphocytes # (Auto) 1.98 K/uL Monocytes # (Auto) 0.57 K/uL Eosinophils # (Auto) 0.10 K/uL Basophils # (Auto) 0.03 K/uL RDW Standard Deviation 46.0 fL RDW Coefficient of Variation 13.3 % Immature Granulocyte % (Auto) 0.3 % Immature Granulocyte # (Auto) 0.02 K/uL Sodium Level 139 mmol/L Potassium Level 3.3 mmol/L Chloride Level 106 mmol/L Carbon Dioxide Level 20 mmol/L Anion Gap 13.0 mmol/L Blood Urea Nitrogen 15 mg/dl Creatinine 1.00 mg/dl Est Creatinine Clear Calc Drug Dose 43.9 ml/min Estimated GFR () 66.6 Estimated GFR (Non- 57.4 BUN/Creatinine Ratio 14.6 Random Glucose 115 mg/dl Calcium Level 9.6 mg/dl Magnesium Level 2.3 mg/dl Total Bilirubin 0.4 mg/dl Aspartate Amino Transf (AST/SGOT) 29 U/L Alanine Aminotransferase (ALT/SGPT) 22 U/L Alkaline Phosphatase 85 U/L Total Creatine Kinase 107 U/L Creatine Kinase MB 0.8 ng/ml Creatine Kinase MB Ratio 0.7 Troponin I < 0.015 ng/ml Total Protein 7.7 gm/dl Albumin 3.8 gm/dl Globulin 3.9 gm/dl Albumin/Globulin Ratio 1.0 Thyroid Stimulating Hormone (TSH) 6.740 uIu/ml Chemistry Specimen Hemolysis Hepatitis C Antibody Screen NEG Urine Color DK YELLOW Urine Appearance CLEAR Urine pH 6.5 Urine Specific [place] 1.018 Urine Protein 1+ Urine Glucose (UA) NEG Urine Ketones TRACE Urine Occult Blood NEG Urine Nitrite NEG Urine Bilirubin NEG Urine Urobilinogen NEG Urine Leukocyte Esterase TRACE Urine WBC (Auto) 1-5 /hpf Urine RBC (Auto) 0-4 /hpf Urine Hyaline Casts (Auto) 5-10 /lpf Urine Epithelial Cells (Auto) >30 /lpf Urine Bacteria (Auto) NEG Imaging: I reviewed the results of her chest x-ray as well as abdominal and head CTs. There was evidence of colitis. No acute intracranial process. No acute pulmonary process EKG: Normal sinus rhythm. Normal EKG Telemetry reviewed: No arrhythmia Echocardiogram performed 03/29/2016. Preserved LV systolic function. No significant valvular disease Assessment & Plan 1. Syncope: The patient's symptoms are all consistent with neurocardiogenic syncope. This could otherwise be called situational syncope and is likely related to high vagal tone. The gastrointestinal symptoms likely led to an element of hypotension and bradycardia and presyncope. All of her syncopal episodes today have been associated with gastrointestinal symptoms and likely of similar etiology. She is an otherwise healthy individual who has no evidence of coronary disease. She has preserved LV systolic function and a normal EKG. She is able to recognize the symptoms leading up to syncope and generally assumes a sitting or supine position. She may have had element of mild dehydration leading up to today's event given her viral symptoms and mild degree of anorexia yesterday. At this point I would advise only supportive measures. She should maintain good hydration. She can recognize the symptoms and does already employ a abortive maneuvers. I do not feel she needs any additional testing other than telemetry monitoring while she is an inpatient.
[2017-01-31 20:00] VITALS: BP 152/66; PULSE 60; TEMP 37.3; O2SAT 95
[2017-01-31] MEDS: ONDANSETRON INJ 2 MG/ML 2 ML VIAL IV. SCH (20:18)
[2017-01-31] MEDS: MoRPHine SULFATE 2 MG/ML CARP IV PRN (21:39)
[2017-01-31 23:15] VITALS: BP 121/53; PULSE 62; TEMP 37.5; O2SAT 96
[2017-02-01] VITALS (9 sets, daily range): BP systolic 106–121; BP diastolic 55–71; PULSE 57–66; TEMP 36.7–37.4; O2SAT 94–98
[2017-02-01] MEDS: MoRPHine SULFATE 2 MG/ML CARP IV PRN ×2 (00:13→04:52)
[2017-02-01] MEDS: NSS + 20MEQ KCL 1000ML 1,000 ML IV SCH ×3 (00:13→17:17)
[2017-02-01] MEDS: ONDANSETRON INJ 2 MG/ML 2 ML VIAL IV. SCH ×4 (02:06→21:03)
[2017-02-01] MEDS: GABAPENTIN 100 MG CAP PO SCH (08:00)
[2017-02-01] MEDS: SIMVASTATIN 5 MG TAB PO SCH (08:00)
[2017-02-01] MEDS ORDERED: ASPIRIN 81 MG ECTAB PO SCH (09:00)
[2017-02-01 11:00] LABS: BLOOD UREA NITROGEN 6 mg/dl (7-18); BUN/CREATININE RATIO 7.8 (10-20); CALCIUM 8.2 mg/dl (8.5-10.1); CARBON DIOXIDE 19 mmol/L (21-32); CHLORIDE 109 mmol/L (98-107); CREATININE 0.73 mg/dl (0.60-1.20); GLUCOSE 76 mg/dl (70-99); SODIUM 136 mmol/L (136-145)
[2017-02-01] MEDS: METRONIDAZOLE / NSS 500 MG in PREMIXED NSS 100 ML IV SCH (18:47)
[2017-02-01] MEDS: CIPROFLOXACIN / D5W 400 MG in PREMIXED IN D5W 200 ML IV SCH (19:36)
[2017-02-01] MEDS ORDERED: PROMETHAZINE HCL INJ 12.5 MG in SODIUM CHLORIDE 0.9% 50ML 50 ML IV PRN (20:00)
[2017-02-01 22:18] LABS: BASO % 0.2 %; BASO ABS # 0.02 K/uL (0-0.2); COMPLETE YES; EOS % 0.6 %; HEMATOCRIT 39.6 % (37-47); IG% 0.2 %; LYMPH % 13.8 %; LYMPH ABS # 1.72 K/uL (1.2-3.4); MEAN CELL VOLUME 95.9 fL (80-100); MEAN CORPUSCULAR HGB CONC 33.3 g/dl (32-36); MEAN PLATELET VOLUME 9.4 fL (7.4-10.4); MONO % 7.5 %; NEUT % 77.7 %; PLATELET COUNT 176 K/uL (130-400); RED BLOOD COUNT 4.13 M/uL (4.2-5.4); WHITE BLOOD COUNT 12.43 K/uL (4.8-10.8)
[2017-02-01 22:30] LABS: BUN/CREATININE RATIO 8.8 (10-20); CREATININE 0.56 mg/dl (0.60-1.20); POTASSIUM 4.3 mmol/L (3.5-5.1)
[2017-02-02] VITALS (7 sets, daily range): BP systolic 91–123; BP diastolic 49–74; PULSE 56–67; TEMP 36.5–36.9; O2SAT 93–100
--- NOTE | 2017-02-02 01:15 | Progress Note ---
Subjective Date of Service: late entry for visit on Feb 01, 2017. Subjective Pt evaluation today including: conversation w/ patient, conversation w/ family ( by phone), physical exam, chart review, lab review, review of studies ( echo 2016; CT abd/pelvis yesterday; previous MRI scans showing subclavian steal ), conversation w/ warehouse consultant (cardiology, GI), review of inpatient medication list Pain: minimal abdominal discomfort PO Intake: poor intake due to nausea Voiding: no voiding problems tele stable overnight patient reports infrequent episodes of syncope for "many years" was hospitalized for such in 2016 review of EMS records from yesterday shows a NORMAL blood glucose in the 120s when they first arrived but VERY LOW systolic BP of about 70 upon first check in the field all syncopal episodes are similar according to the patient and associated with prodromal symptoms she denies ANY vertigo, ataxia, or visual field cuts with her symptoms yesterday she passed out in the bathroom after she had drank some coffee with her friends she didn't begin stooling until getting to the hospital her syncope was NOT brought on by use of the left arm - the side of her subclavian stenosis she recalls that many of her prior episodes of passing out have been associated with eating/drinking Problem List Medical Problems: (1) Colitis Status: Acute (2) Herniated cervical disc Status: Acute (3) Near syncope Status: Acute (4) Rectal bleed Status: Acute (5) Subclavian artery stenosis Status: Acute (6) Subclavian steal syndrome Status: Acute (7) Syncope Status: Acute (8) Vertebral artery stenosis Status: Acute (9) Vomiting Status: Acute Review of Systems Constitutional: No fever, No chills Respiratory: No cough, No shortness of breath Cardiac: No chest pain Abdomen: + pain, + nausea, + diarrhea Objective Vital Signs Date Time Temp Pulse Resp B/P (MAP) Pulse Ox O2 Delivery O2 Flow Rate FiO2 02/02/17 00:05 Room Air 02/01/17 23:19 37.0 63 16 106/71 (83) 98 Room Air 02/01/17 20:00 Room Air 02/01/17 18:15 37.2 66 18 118/70 (86) 96 Room Air 02/01/17 17:00 36.7 62 16 116/55 (75) 97 Room Air 02/01/17 16:00 62 18 02/01/17 15:10 Room Air 02/01/17 15:00 62 20 02/01/17 14:59 62 16 116/55 (75) 02/01/17 11:45 37.3 57 16 121/56 (77) 97 Room Air 02/01/17 11:45 Room Air 02/01/17 08:00 Room Air 02/01/17 08:00 36.7 64 16 108/62 (77) 96 Room Air 02/01/17 04:00 Room Air 02/01/17 04:00 37.4 63 16 113/55 (74) 94 Room Air Physical Exam General Appearance: no apparent distress, + thin ENT: pharynx normal Neck: no JVD Respiratory/Chest: lungs clear, no respiratory distress, no accessory muscle use Cardiovascular: regular rate, rhythm, no gallop, no JVD, no murmur, + pertinent finding (left radial artery pulse modestly less vs the right radial artery pulse) Abdomen: normal bowel sounds, non tender, soft, no organomegaly Extremities: no pedal edema Neurologic/Psychiatric: alert, oriented x 3 Laboratory Results Last 24 Hours Test 02/01/17 09:37 02/01/17 11:42 02/01/17 22:03 Sodium Level 136 mmol/L 140 mmol/L Potassium Level mmol/L 4.5 mmol/L 4.3 mmol/L Chloride Level 109 mmol/L 111 mmol/L Carbon Dioxide Level 19 mmol/L 22 mmol/L Anion Gap 8.0 mmol/L 7.0 mmol/L Blood Urea Nitrogen 6 mg/dl 5 mg/dl Creatinine 0.73 mg/dl 0.56 mg/dl Est Creatinine Clear Calc Drug Dose 60.1 ml/min 78.4 ml/min Estimated GFR () 97.4 110.3 Estimated GFR (Non- 84.0 95.1 BUN/Creatinine Ratio 7.8 8.8 Random Glucose 76 mg/dl 82 mg/dl Calcium Level 8.2 mg/dl 8.0 mg/dl White Blood Count 12.43 K/uL Red Blood Count 4.13 M/uL Hemoglobin 13.2 g/dL Hematocrit 39.6 % Mean Corpuscular Volume 95.9 fL Mean Corpuscular Hemoglobin 32.0 pg Mean Corpuscular Hemoglobin Concent 33.3 g/dl Platelet Count 176 K/uL Mean Platelet Volume 9.4 fL Neutrophils (%) (Auto) 77.7 % Lymphocytes (%) (Auto) 13.8 % Monocytes (%) (Auto) 7.5 % Eosinophils (%) (Auto) 0.6 % Basophils (%) (Auto) 0.2 % Neutrophils # (Auto) 9.65 K/uL Lymphocytes # (Auto) 1.72 K/uL Monocytes # (Auto) 0.93 K/uL Eosinophils # (Auto) 0.08 K/uL Basophils # (Auto) 0.02 K/uL RDW Standard Deviation 47.9 fL RDW Coefficient of Variation 13.8 % Immature Granulocyte % (Auto) 0.2 % Immature Granulocyte # (Auto) 0.03 K/uL Assessment and Plan 71yo female: 1. syncope - appreciate Dr. Vásquez's consultation. Agree that her episodes are neurocardiogenic in nature. Likely they are vasovagal induced. She has classic prodromal symptoms prior to them occurring. Her documented low BP and low HR at the time of EMS arrival yesterday fits with vasovagal pathophysiology. Again her fingerstick blood sugar at time of EMS arrival was NORMAL. She has had myoclonic jerking with past episodes, pallor, etc and typically there is judaism of consciousness fairly quickly. Although she has a h/o subclavian steal syndrome with a left-sided subclavian stenosis (due to prior radiation therapy for breast cancer more than likely) she does NOT report any "drop attacks" when she utilizes the left arm and denies other neurological symptoms with use of the left arm. Continue hydration and telemetry monitoring. 2. colitis - the CT findings suggest the worst area of colitis is the descending colon. With the transient low BP yesterday was this ischemic in nature? I was informed by staff late today that she passed what sounds like maroon- colored stools. This would fit with ischemic colitis. C. diff toxin and stool cx thus far negative. Will keep NPO, continue IVF, and place on IV cipro/flagyl. I spoke with [facility] who will consult in am. 3. acute kidney injury - resolving. Continue IVF. 4. subclavian steal syndrome - followed by vascular surgery for this. Has left-sided subclavian stenosis. Was treated with xrt for left-breast cancer many years ago and scarring from the XRT was felt to have given her this. She has no prior h/o smoking. See #1 above. 5. hypokalemia - resolved. 6. abnormal TSH - last 2 TSH checks have been mildly high. Recommend f/u as outpatient. 7. DVT proph - in light of GI bleeding hold any chemical means for now. SCDs only. updated by phone Continued [facility] stay due to: inadequate po fluid intake, multiple IV medications needed Discharge planning: home
[2017-02-02] MEDS: METRONIDAZOLE / NSS 500 MG in PREMIXED NSS 100 ML IV SCH ×3 (01:58→17:05)
[2017-02-02] MEDS: NSS + 20MEQ KCL 1000ML 1,000 ML IV SCH ×2 (01:58→14:10)
[2017-02-02] MEDS: ONDANSETRON INJ 2 MG/ML 2 ML VIAL IV. SCH ×4 (01:59→21:50)
[2017-02-02] MEDS: CIPROFLOXACIN / D5W 400 MG in PREMIXED IN D5W 200 ML IV SCH ×2 (06:05→17:04)
[2017-02-02] MEDS: SIMVASTATIN 5 MG TAB PO SCH (08:00)
[2017-02-02] MEDS: GABAPENTIN 100 MG CAP PO SCH (08:00)
--- NOTE | 2017-02-02 08:47 | Progress Note ---
Subjective Date of Service: Feb 02, 2017. Subjective this pt is feeling better, no stool since yesterday, no further bleeding seen, is encouraged to ambulate and will need to tolerate diet Problem List Medical Problems: (1) Colitis Status: Acute (2) Herniated cervical disc Status: Acute (3) Near syncope Status: Acute (4) Rectal bleed Status: Acute (5) Subclavian artery stenosis Status: Acute (6) Subclavian steal syndrome Status: Acute (7) Syncope Status: Acute (8) Vertebral artery stenosis Status: Acute (9) Vomiting Status: Acute Review of Systems Constitutional: + weakness, + fatigue, No fever, No chills Respiratory: No cough, No sputum, No shortness of breath Cardiac: No chest pain, No orthopnea, No edema Abdomen: No pain, No vomiting, No diarrhea Musculoskeletal: No joint pain, No muscle pain Objective Vital Signs Date Time Temp Pulse Resp B/P (MAP) Pulse Ox O2 Delivery O2 Flow Rate FiO2 02/02/17 08:00 Room Air 02/02/17 04:01 36.5 60 17 93/57 (69) 93 Room Air 02/02/17 04:00 Room Air 02/02/17 00:05 Room Air 02/01/17 23:19 37.0 63 16 106/71 (83) 98 Room Air 02/01/17 20:00 Room Air 02/01/17 18:15 37.2 66 18 118/70 (86) 96 Room Air 02/01/17 17:00 36.7 62 16 116/55 (75) 97 Room Air 02/01/17 16:00 62 18 02/01/17 15:10 Room Air 02/01/17 15:00 62 20 02/01/17 14:59 62 16 116/55 (75) 02/01/17 11:45 37.3 57 16 121/56 (77) 97 Room Air 02/01/17 11:45 Room Air Physical Exam General Appearance: WD/WN, no apparent distress Eyes: PERRL, EOMI Respiratory/Chest: chest non-tender, lungs clear, normal breath sounds Cardiovascular: regular rate, rhythm, no murmur Abdomen: normal bowel sounds, non tender, soft Extremities: no pedal edema, no calf tenderness Neurologic/Psychiatric: alert, oriented x 3 Laboratory Results Last 24 Hours Test 02/01/17 09:37 02/01/17 11:42 02/01/17 22:03 Sodium Level 136 mmol/L 140 mmol/L Potassium Level mmol/L 4.5 mmol/L 4.3 mmol/L Chloride Level 109 mmol/L 111 mmol/L Carbon Dioxide Level 19 mmol/L 22 mmol/L Anion Gap 8.0 mmol/L 7.0 mmol/L Blood Urea Nitrogen 6 mg/dl 5 mg/dl Creatinine 0.73 mg/dl 0.56 mg/dl Est Creatinine Clear Calc Drug Dose 60.1 ml/min 78.4 ml/min Estimated GFR () 97.4 110.3 Estimated GFR (Non- 84.0 95.1 BUN/Creatinine Ratio 7.8 8.8 Random Glucose 76 mg/dl 82 mg/dl Calcium Level 8.2 mg/dl 8.0 mg/dl White Blood Count 12.43 K/uL Red Blood Count 4.13 M/uL Hemoglobin 13.2 g/dL Hematocrit 39.6 % Mean Corpuscular Volume 95.9 fL Mean Corpuscular Hemoglobin 32.0 pg Mean Corpuscular Hemoglobin Concent 33.3 g/dl Platelet Count 176 K/uL Mean Platelet Volume 9.4 fL Neutrophils (%) (Auto) 77.7 % Lymphocytes (%) (Auto) 13.8 % Monocytes (%) (Auto) 7.5 % Eosinophils (%) (Auto) 0.6 % Basophils (%) (Auto) 0.2 % Neutrophils # (Auto) 9.65 K/uL Lymphocytes # (Auto) 1.72 K/uL Monocytes # (Auto) 0.93 K/uL Eosinophils # (Auto) 0.08 K/uL Basophils # (Auto) 0.02 K/uL RDW Standard Deviation 47.9 fL RDW Coefficient of Variation 13.8 % Immature Granulocyte % (Auto) 0.2 % Immature Granulocyte # (Auto) 0.03 K/uL Assessment and Plan 71yo female with neurocardiogenic syncope syncope - neurocardiogenic and likely vasovagal. h/o subclavian steal syndrome with a left-sided subclavian stenosis (due to prior radiation therapy for breast cancer more than likely) she does NOT report any "drop attacks" when she utilizes the left arm and denies other neurological symptoms with use of the left arm. colitis - the CT findings suggests descending colon. With the transient low BP consider ischemic colitis. C. diff toxin and stool cx thus far negative. will start to feed as would be unsafe to do colonoscopy if h/h stable in am and pt is improved will have home, if h/h drops may consider discussion of EGD acute kidney injury - resolving. Continue IVF. hypokalemia - resolved. abnormal TSH - last 2 TSH checks have been mildly high. Recommend f/u as outpatient. DVT proph - in light of GI bleeding hold any chemical means for now. SCDs only. Continued [facility] stay due to: inadequate po fluid intake, multiple IV medications needed Discharge planning: home
[2017-02-02 11:25] LABS: HEMATOCRIT 40.1 % (37-47); MEAN CELL VOLUME 96.9 fL (80-100); MEAN CORPUSCULAR HEMOGLOBIN 32.4 pg (25-34); MEAN CORPUSCULAR HGB CONC 33.4 g/dl (32-36); MEAN PLATELET VOLUME 9.7 fL (7.4-10.4); PLATELET COUNT 174 K/uL (130-400); RED BLOOD COUNT 4.14 M/uL (4.2-5.4); WHITE BLOOD COUNT 11.82 K/uL (4.8-10.8)
[2017-02-02] MEDS ORDERED: NURSING VERBAL MED ORDER ONE (21:45)
[2017-02-02] MEDS ORDERED: LAVAGE SOLUTION 4000ML PO ONE (22:00)
[2017-02-03] MEDS: NSS + 20MEQ KCL 1000ML 1,000 ML IV SCH ×2 (00:25→09:00)
[2017-02-03] MEDS: METRONIDAZOLE / NSS 500 MG in PREMIXED NSS 100 ML IV SCH ×3 (01:19→17:53)
[2017-02-03] MEDS: ONDANSETRON INJ 2 MG/ML 2 ML VIAL IV. SCH ×3 (01:20→12:52)
--- NOTE | 2017-02-03 01:48 | GASTROINTESTINAL CONSULTATION ---
DATE OF CONSULTATION: 02/02/2017 CHIEF COMPLAINT: Hematochezia, abdominal pain, syncope. HISTORY OF PRESENT ILLNESS: Mrs. German is a 71-year-old white female who presented to the hospital with a syncopal episode that occurred at [facility]. She has had several events of these over the past year or so. She denied any chest pain, shortness of breath and did not report any hematemesis, coffee-ground emesis. When reaching the Emergency Room, she had watery stools that eventually turned bloody. She was admitted to the hospital on 01/31/2017. Since that time she has not had any syncopal episodes, although continues with abdominal pain. The patient did take some NSAIDs, although does not chronically use them. She occasionally uses them for headaches. She does not report any weight loss, believes her last colonoscopy was approximately 10 years ago at [facility] with no findings. The event that led to this syncopal episode followed drinking a cup of coffee, where she passed out in the bathroom. She was awake and alert shortly after and believes she passed out for perhaps a minute or two. She had not been experiencing any recent diarrhea, constipation, melena or bright red blood per rectum. The patient's past medical history is significant for breast cancer for which she underwent partial mastectomy, chemotherapy and radiation. As a result, patient had developed what appeared to be subclavian steal syndrome. She has had a workup by vascular surgery in [place] as well as cardiology, and it is unclear if this phenomenon is responsible for the syncopal type episodes. She did have an echocardiogram, but does not recall any outpatient Holter monitor. At that time her blood pressure was 66 systolic and reportedly bradycardic. ALLERGIES: She has no known drug allergies. HOME MEDICATIONS: Include aspirin, gabapentin, simvastatin, and p.r.n. Motrin which she reports is not frequently used, although she will take several doses in a day if she experiences headaches. She has no prior history of peptic ulcer disease. FAMILY HISTORY: Noncontributory. SOCIAL HISTORY: The patient denies tobacco or alcohol use. 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 She currently does some glove printer works [employer]. REVIEW OF SYSTEMS: Otherwise noncontributory based on 13-point exam except for mentioned above. The patient does not report anyone at home with similar diarrheal illness. She denies dysuria, hematuria, odynophagia, dysphagia. There is no melena described. PHYSICAL EXAMINATION: VITAL SIGNS: Today on admission through the Emergency Room, patient was afebrile, blood pressure 140/76, pulse 60, respirations 20, 97% on room air. Multiple ER assessments showed a normotensive pattern with heart rate in the 60s. Currently, patient is afebrile, blood pressure 118/73, heart rate 56, afebrile at 36.7, respirations 14, 98% on room air. GENERAL: The patient was initially ambulating in the hallway with her without difficulty. HEENT: Upon returning to the room revealed, sclerae anicteric, conjunctiva moist. Oral mucosa moist. NECK: There is no cervical or supraclavicular adenopathy. I do not appreciate thyromegaly. HEART: Normal S1, S2 and slightly bradycardic approximately at 56 beats per minute. LUNGS: Clear to auscultation without rales, rhonchi or wheezes. ABDOMEN: Soft, tender in a diffuse pattern, although more on the left side than on the right. There is no rebound or guarding. There is positive bowel sounds. There is no evidence of hepatosplenomegaly or abdominal bruits. EXTREMITIES: Without clubbing, cyanosis or edema. RECTAL: Deferred. LABORATORY STUDIES: Today show a white count that is 11.8, which is slightly down from yesterday at 12.3, on ER presentation it was 7. Hemoglobin has essentially remained stable at the initial value which on ER was 15.3, today it is 13.4. Platelet count 174,000. Serum chemistry; BUN is 5 and creatinine is 0.56, potassium 4.3, magnesium 2.3. Liver tests are all normal. AST 29, ALT 22, alkaline phosphatase 85. TSH is slightly elevated at 6.74, albumin 3.8. CPK is normal at 107. Urinalysis showed trace ketones, trace leukocyte esterase, nitrite negative, and 1-5 white blood cells. Serology: Hepatitis C is negative. IMAGING STUDIES: On admission revealed normal chest x-ray with no acute process. There are some emphysematous changes noted. CT scan from admission revealed a diffuse mild thickening of the colon involving nearly all of the colon. There is no evidence for obstruction, the pattern is one of nonspecific colitis without evidence of abscess. There is a fatty infiltration to the liver. There is no adenopathy. There is trace pericolonic infiltrative change in the descending colon. CT of the head, no acute intracranial findings. IMPRESSION AND PLAN: The patient's stool studies were negative for Clostridium difficile, Shiga toxin, routine bacterial cultures. The patient with acute onset of diarrhea for which she reports a few episodes before turning bloody after presentation to the ER, although there may have been some pattern of loose stools preceding her ER transportation. However, she does not experience chronic diarrhea and was not experiencing diarrhea the day before admission. There has been no fever or chills and infectious etiology is not identified or suspected. Currently, there is a pattern of abdominal discomfort along with diarrhea and nurses reported this evening that the bowel movement was bloody in nature. Her hemoglobin is currently stable in the mid 13 range, although it is down a little bit from her admission labs of 15. Differential diagnoses include ischemic colitis, inflammatory bowel disease, although this is less likely given the absence of history or family history. Her son does have diverticulitis diagnosed in his 30s. The patient has ongoing bleeding. Imaging on CT scan from admission suggests an extended or perhaps pancolitis. Ischemic is the most likely possibility, although the description that this is a nearly pancolonic is inconsistent with ischemic type. I believe it is reasonable to perform a colonoscopy; however, patient's syncopal episodes and subclavian steal syndrome need to be considered in the decision, particularly with bowel prepping and sedation. I did speak with Dr. Magdaleno this evening and he is agreeable to proceed with colonoscopy from a cardiovascular standpoint, but I will place a consult to anesthesia prior to bowel preparation to ensure that they are willing to provide sedation for patient tomorrow. If so, then we will do a GoLYTELY prep this evening and n.p.o. after midnight except for medications. Plan is for colonoscopy and potentially biopsies. Admission BUN and creatinine did not suggest an upper gastrointestinal bleed and there was no melena associated with this. Will also observe hemoglobin tomorrow to see if there is a downward trend given the recurrent bleeding that she experienced this evening. Further recommendations to follow. Dr. Feng will be covering and performing a colonoscopy tomorrow. ARLYN
[2017-02-03 04:08] VITALS: BP 106/59; PULSE 58; TEMP 36.7; O2SAT 96
[2017-02-03] MEDS: CIPROFLOXACIN / D5W 400 MG in PREMIXED IN D5W 200 ML IV SCH (05:33)
[2017-02-03 07:20] LABS: MEAN CELL VOLUME 96.2 fL (80-100); MEAN CORPUSCULAR HEMOGLOBIN 32.9 pg (25-34); MEAN CORPUSCULAR HGB CONC 34.3 g/dl (32-36); PLATELET COUNT 178 K/uL (130-400); RED BLOOD COUNT 4.16 M/uL (4.2-5.4); WHITE BLOOD COUNT 10.51 K/uL (4.8-10.8)
[2017-02-03 07:25] VITALS: BP 129/63; PULSE 72; TEMP 36.5; O2SAT 97
[2017-02-03] MEDS: SIMVASTATIN 5 MG TAB PO SCH (07:27)
[2017-02-03] MEDS: GABAPENTIN 100 MG CAP PO SCH (07:27)
[2017-02-03 07:37] LABS: BUN/CREATININE RATIO 4.5 (10-20); CALCIUM 8.2 mg/dl (8.5-10.1); CREATININE 0.75 mg/dl (0.60-1.20); POTASSIUM 3.9 mmol/L (3.5-5.1)
[2017-02-03 11:24] VITALS: BP 115/70; PULSE 62; TEMP 36.7; O2SAT 97
--- NOTE | 2017-02-03 15:27 | Endo History and Physical ---
History & Physical Date of Service: Feb 03, 2017. Chief Complaint: rectal bleeding Referring Physician: Dr. Magdaleno History of Present Illness For colonoscopy Past Medical History High Cholesterol Past Surgical History Hx Cardiac Surgery: No Hx Abdominal Surgery: No Hx Post-Op Nausea and Vomiting: No Hx Cancer Surgery: Yes (Partial mastectomy & axillary biopsy in 1988) Hx Thoracic Surgery: No Hx Orthopedic: No Hx Urinary Tract Surgery: No Social History Smoking Status: Never Smoker Smokeless Tobacco Use: No Hx Substance Use: No Hx Alcohol Use: Yes (1 beer or glass of wine a couple times a week) Allergies Coded Allergies: No Known Allergies (Unverified , 02/03/17) Current Medications Reported Home Medications Medications Dose Route/Sig Max Daily Dose Days Date Category Neurontin (Gabapentin) 100 Mg Cap 100 Mg PO DAILY 01/31/17 Reported Aspir-81 (Aspirin) 81 Mg Tab 1 Tab PO DAILY 30 04/22/16 Reported Zocor (Simvastatin) 5 Mg Tab 5 Mg PO DAILY 03/28/08 Reported Vital Signs Weight (Kilograms): 58.700 Height (Feet): 5 Height (Inches): 3.00 Date Time Temp Pulse Resp B/P (MAP) Pulse Ox O2 Delivery O2 Flow Rate FiO2 02/03/17 14:44 36.9 60 16 146/57 (86) 97 Room Air 02/03/17 12:00 Room Air 02/03/17 11:24 36.7 62 16 115/70 (85) 97 Room Air 02/03/17 08:00 Room Air 02/03/17 07:25 36.5 72 16 129/63 (85) 97 Room Air 02/03/17 04:08 36.7 58 17 106/59 (75) 96 Room Air 02/03/17 04:00 Room Air 02/03/17 00:01 Room Air 02/02/17 23:47 36.5 58 19 123/74 (90) 100 Room Air 02/02/17 22:00 Room Air 02/02/17 19:06 36.9 67 16 97/64 (75) 98 Room Air 02/02/17 16:23 36.7 56 14 118/73 (88) 98 Room Air 02/02/17 16:00 Room Air Physical Exam General Appearance: WD/WN Respiratory/Chest: Respiratory effort: no dyspnea Cardiovascular: Heart Auscultation: RRR Abdomen: Inspection & Palpation: soft Assessment and Plan rectal bleeding for colonoscopy
--- NOTE | 2017-02-03 16:03 | Discharge Instructions ---
Endoscopy Patient Instructions Date / Procedure(s) Performed Feb 03, 2017. Colonoscopy Allergy Information Coded Allergies: No Known Allergies (Unverified , 02/03/17) Discharge Date / Findings Feb 03, 2017. Ischemic colitis Medication Instructions Restart Stopped Medication(s): resume meds Current Inpatient Medications Medications (Trade) Dose Ordered Sig/Mai Route Start Time Stop Time Status Last Admin Dose Admin Ioversol (Optiray 320) 111 ml UD PRN IV 01/31/17 14:00 02/04/17 13:59 Potassium Chloride/Sodium Chloride 1,000 ml @ 125 mls/hr Q8H IV 01/31/17 15:45 03/02/17 15:44 02/03/17 09:00 125 MLS/HR Acetaminophen (Tylenol Tab) 650 mg Q4H PRN PO 01/31/17 15:00 03/02/17 14:59 Aspirin (Ecotrin Tab) 81 mg DAILY PO 02/01/17 09:00 03/03/17 08:59 Future Hold 02/01/17 08:00 81 MG Gabapentin (Neurontin Cap) 100 mg DAILY PO 02/01/17 09:00 03/03/17 08:59 02/01/17 08:00 100 MG Simvastatin (Zocor Tab) 5 mg DAILY PO 02/01/17 09:00 03/03/17 08:59 02/01/17 08:00 5 MG Ondansetron HCl (Zofran Inj) 4 mg Q6H IV. 01/31/17 20:00 03/02/17 19:59 02/03/17 01:20 4 MG Morphine Sulfate (MoRPHine SULFATE INJ) 2 mg Q2H PRN IV 01/31/17 21:30 02/14/17 21:29 02/01/17 04:52 2 MG Ciprofloxacin/ Dextrose 400 mg/ Prmx 200 ml @ 100 mls/hr Q12H IV 02/01/17 18:00 02/11/17 17:59 02/03/17 05:33 100 MLS/HR Metronidazole 500 mg/Prmx 100 ml @ 100 mls/hr Q8H IV 02/01/17 18:00 02/11/17 17:59 02/03/17 10:13 100 MLS/HR Promethazine HCl 12.5 mg/Sodium Chloride 50.5 ml @ 204 mls/hr Q6H PRN IV 02/01/17 20:00 03/03/17 19:59 02/01/17 20:59 204 MLS/HR Provider Instructions Activity Restrictions - No exercising or heavy lifting for 24 hours. - Do not drink alcohol the day of the procedure. - Do not drive a car or operate machinery until the day after the procedure. - Do not make any important decisions or sign important papers in 24 hours after the procedure. Following Day: - Return to full activity which may include returning to work/school. Diet Start your diet with liquids and light foods (jello, soup, juice, toast). Then eat your usual diet if not nauseated. Treatment For Common After Affects For mild abdominal pain, bloating, or excessive gas: - Rest - Eat lightly - Lie on right side Follow-Up Information Follow-up with as scheduled Anesthesia Information What You Should Know You have had a procedure that required some medicine to reduce anxiety and discomfort. This treatment is called moderate sedation. After receiving the treatment, you may be sleepy, but you will be able to breathe on your own. The effects of the treatment may last for several hours. Follow these instructions along with Activity/Diet recommendations noted above: * Do NOT do anything where dizziness or clumsiness would be dangerous. * Rest quietly at home today, then you can be up and about tomorrow. * Have a responsible person stay with you the rest of today. * You may have had an I.V. today. If so, you may take the dressing off later today. Recommendations Call your doctor if: * Trouble breathing * Continuous vomiting for more than 24 hours * Temperature above 101 degrees * Severe abdominal pain or bloating * Pain not relieved by pain medicine ordered * There is increased drainage or redness from any incision * A large amount of rectal bleeding greater than 2-3 tablespoons. (If you had a polyp/s removed or have hemorrhoids, a small amount of blood - from the rectum is to be expected.) * You have any unanswered questions or concerns. IN THE EVENT OF A SERIOUS EMERGENCY, GO TO THE NEAREST EMERGENCY ROOM Your discharge instructions were prepared by provider Lewis Feng. Patient Instructions Signature Page Aracelis Maxi Patient (or Guardian) Signature/Date: I have read and understand the instructions given to me by my caregivers. Caregiver/RN/Doctor Signature/Date: The above-named patient and/or guardian has received patient instructions on this date. + Original Patient Signature Page (only) stays with chart. Please make copy for patient.
[2017-02-03] MEDS ORDERED: PROPOFOL IV EMULSION 10 MG/ML 20 ML VIAL IV ONE (16:05)
--- NOTE | 2017-02-03 16:08 | GI REPORT ---
Procedure Date: 02/03/2017 3:37 PM Procedure: Colonoscopy Indications: Rectal bleeding, Abnormal CT of the GI tract Medicines: Propofol total dose 260 mg IV Complications: No immediate complications. Estimated Blood Loss: Estimated blood loss was minimal. Procedure: Pre-Anesthesia Assessment: - Prior to the procedure, a History and Physical was performed, and patient medications, allergies and sensitivities were reviewed. The patient's tolerance of previous anesthesia was reviewed. - The risks and benefits of the procedure and the sedation options and risks were discussed with the patient. All questions were answered and informed consent was obtained. After I obtained informed consent, the scope was passed under direct vision. Throughout the procedure, the patient's blood pressure, pulse, and oxygen saturations were monitored continuously. The scope was introduced through the anus and advanced to the cecum, identified by appendiceal orifice and ileocecal valve. The colonoscopy was somewhat difficult due to significant looping. Successful completion of the procedure was aided by applying abdominal pressure. The patient tolerated the procedure well. The quality of the bowel preparation was good. Findings: A segmental area of mildly friable mucosa with contact bleeding was found in the sigmoid colon, in the descending colon and at the splenic flexure. This was biopsied with a cold forceps for histology. Estimated blood loss was minimal. Impression: - Friability with contact bleeding in the sigmoid colon, in the descending colon and at the splenic flexure. Biopsied. Recommendation: - Return patient to [facility] for ongoing care. Lewis Feng M.D. Lewis Feng MD 02/03/2017 4:07:37 PM This report has been signed electronically. Note Initiated On: 02/03/2017 3:37 PM I attest to the content of the Intraoperative Record and orders documented therein, exceptions below
--- NOTE | 2017-02-03 16:17 | Anesthesiology Progress Note ---
Anesthesia Post Op Note Date & Time Feb 03, 2017 at 16:17 Vital Signs Pain Intensity: 0 Vital Signs Past 12 Hours Date Time Temp Pulse Resp B/P (MAP) Pulse Ox O2 Delivery O2 Flow Rate FiO2 02/03/17 16:08 57 16 138/64 (88) 97 Room Air 02/03/17 14:44 36.9 60 16 146/57 (86) 97 Room Air 02/03/17 12:00 Room Air 02/03/17 11:24 36.7 62 16 115/70 (85) 97 Room Air 02/03/17 08:00 Room Air 02/03/17 07:25 36.5 72 16 129/63 (85) 97 Room Air Notes Mental Status: alert / awake / arousable, participated in evaluation Pt Amnestic to Procedure: Yes Nausea / Vomiting: adequately controlled Pain: adequately controlled Airway Patency, RR, SpO2: stable & adequate BP & HR: stable & adequate Hydration State: stable & adequate Anesthetic Complications: no major complications apparent
--- NOTE | 2017-02-03 16:32 | PROGRESS NOTE ---
DATE: 02/03/2017 The patient presented with syncope and hypotension. Following this, she had some rectal bleeding, which was maroon and CT scan showed some thickening of the colon. She underwent a colonoscopy today, which showed left-sided inflammation consistent with ischemia. The rectum was spared as was the transverse and right colon. Biopsies of the left colon were obtained. IMPRESSION: The patient appears to have left-sided ischemic colitis, probably from her episode of hypotension during her syncopal episode. This should resolve with conservative care. I will continue to follow this patient. Dr. Henry Lopez from [facility] will be covering during the weekend.
[2017-02-03 16:45] VITALS: BP 151/78; PULSE 55; TEMP 36.7; O2SAT 98
[2017-02-03] MEDS ORDERED: AMOX875T PO (18:19)
[2017-02-03 18:20] VITALS: BP 151/78; PULSE 55; TEMP 36.7; O2SAT 98
--- NOTE | 2017-02-03 18:21 | Discharge Instructions ---
Discharge Instructions Date of Service Feb 03, 2017. Admission Reason for Admission: Subclavian Steal Syndrome, Syncope And Collapse Discharge Discharge Diagnosis / Problem: ischemic colitis, vasovagal syncope Discharge Goals Goal(s): Diagnostic testing, Therapeutic intervention Activity Recommendations Activity Limitations: resume your previous activity . Current Hospital Diet Patient's current hospital diet: Full Liquid Diet Discharge Diet Recommended Diet: Low Fiber Diet (for one week then resume normal diet) Procedures Procedures Performed: Colonoscopy Pending Studies Studies pending at discharge: yes List of pending studies: colonoscopy samples Medical Emergencies . Who to Call and When: Medical Emergencies: If at any time you feel your situation is an emergency, please call 911 immediately. . Non-Emergent Contact Non-Emergency issues call your: Primary Care Provider, Hand Drawer In Call Non-Emergent contact if: temperature is above 101, your pain is unusual for you . . "Provider Documentation" section prepared by Catracho Magdaleno. . VTE Core Measure Inpt VTE Proph given/why not?: SCD's
--- NOTE | 2017-02-03 18:24 | Discharge Summary ---
Discharge Summary Date of Service Feb 03, 2017. Discharge Summary Admission Date: Jan 31, 2017 at 14:25 Discharge Date: Feb 03, 2017 Discharge Disposition: Home Principal Diagnosis: ischemic colitis, vasovagal syncope Immunizations: Have You Had Influenza Vaccine: Unknown History of Tetanus Vaccine?: Unknown History of Pneumococcal: Unknown History of Hepatitis B Vaccine: Unknown Medication Reconciliation New Medications: Amoxicillin & Pot Clavulanate (Augmentin 875-125 mg) 1 Tab Tab 875 MG PO BID, #10 TAB Continued Medications: Aspirin (Aspir-81) 81 Mg Tab 1 TAB PO DAILY for 30 Days, #30 TAB 5 Refills Gabapentin (Neurontin) 100 Mg Cap 100 MG PO DAILY, CAP Simvastatin (Zocor) 5 Mg Tab 5 MG PO DAILY, 0 Refills Discharge Exam Review of Systems: Constitutional: No fever, No chills Respiratory: No cough, No sputum Cardiovascular: No chest pain, No orthopnea, No PND Abdomen: No pain, No nausea, No vomiting Musculoskeletal: No joint pain, No muscle pain Physical Exam: General Appearance: WD/WN, + mild distress Eyes: PERRL, EOMI Neck: supple, no JVD Respiratory/Chest: chest non-tender, lungs clear, normal breath sounds Cardiovascular: no murmur, + bradycardia Abdomen / GI: normal bowel sounds, non tender, soft Extremities: no pedal edema, normal range of motion Neurologic/Psychiatric: alert, oriented x 3 Hospital Course 71yo female with neurocardiogenic syncope syncope - neurocardiogenic and likely vasovagal. 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 colitis - the CT findings suggests descending colon. With the transient low BP ischemic colitis was confirmed on colonoscopy, will continue antibiotics for additional 5 days to prevent bacterial translocation C. diff toxin and stool cx thus far negative. acute kidney injury - resolved hypokalemia - resolved. abnormal TSH - last 2 TSH checks have been mildly high. Recommend f/u as outpatient. DVT proph -. SCDs only. Total Time Spent: Greater than 30 minutes This includes examination of the patient, discharge planning, medication reconciliation, and communication with other providers. Discharge Instructions Please refer to the electronic Patient Visit Report (Discharge Instructions) for additional information.
[2017-02-06 18:55] LABS: O&P GIARDIA AG NOT DETECTED (NOT DETECTED)
== END 2017-02-03 19:00 | disposition home or self-care (01) | DRG 394 ==
LOC: EDBD 11:25 → C.EDA 11:28 → C.MSICU 14:25 → ENRESERV 14:49 → C.2T 02-01 18:39
PROVIDERS: ADMIT Hospitalist; ATTEND Internal Medicine
PROC: 0DBM8ZX Excision of Descending Colon, Via Natural or Artificial Opening Endoscopic, Diagnostic (ICD-10-PCS; principal; 2017-02-03 14:29)
PROC: 0DBN8ZX Excision of Sigmoid Colon, Via Natural or Artificial Opening Endoscopic, Diagnostic (ICD-10-PCS; principal; 2017-02-03 14:29)
DX: K55.9 Vascular disorder of intestine, unspecified (principal); G45.8 Other transient cerebral ischemic attacks and related syndromes; N17.9 Acute kidney failure, unspecified; R55 Syncope and collapse; E87.6 Hypokalemia; R94.6 Abnormal results of thyroid function studies; E78.5 Hyperlipidemia, unspecified; Z85.3 Personal history of malignant neoplasm of breast; Z92.3 Personal history of irradiation; Z92.21 Personal history of antineoplastic chemotherapy; Z79.82 Long term (current) use of aspirin; Z79.899 Other long term (current) drug therapy

== ENCOUNTER → 2017-03-23 | Day surgery (SDC) | payer OTHER, MEDICARE ==
[~2017-03-23] MED LIST changes: +CEFAZOLIN 1000MG IV PUSH 5 ML IV SCH; -DIPH-437 PO; +GABA-112 PO; -GABA-113 PO; -IBUP-1050 PO; +LACTATED RINGER'S 1000ML IV SCH; +LIDOCAINE HCL 1% 20 ML VIAL ONE
[2017-03-23 06:45] VITALS: BP 128/48; PULSE 60; TEMP 36.8; O2SAT 96
--- NOTE | 2017-03-23 07:47 | History & Physical Bridge Note ---
H&P Re-Evaluation Bridge Note: I have examined the patient, reviewed the History & Physical and in the interval since the performance of the History & Physical I have noted the following changes of clinical significance:No additional episodes of syncope. No changes noted
--- NOTE | 2017-03-23 08:08 | [facility] Operative Report ---
Operative Report Date of Service Mar 23, 2017. Operative Report The procedure performed: Implantation of patient activated loop recorder Staff set up and charger: Howard Vásquez MD Indication: The patient is a 71-year-old woman with a frequent history of syncope. There is some debate whether she has a primary cardio inhibitory response or would benefit from permanent pacing. Due to the severe episodes that she has had she was advised to consider implantation of loop recorder for additional diagnostic utility. Procedure in detail: The patient was informed of the risks benefits and alternatives to the intended procedure. They understood such and wished to proceed. The patient was taken to the electrophysiology suite where the upper chest area was prepped and draped in the usual sterile fashion. An area left lateral to the sternum in the 4th intercostal space was subsequently anesthetized using subcutaneous administration of lidocaine solution. A small incision was made at this site and implantation of the loop recorder was accomplished using a proprietary implantation tool. The small incision was subsequently closed using a single 4 0 Vicryl suture. Steri-Strips and a sterile dressing were then applied. The patient tolerated the procedure well. There were no immediate complications. The device was tested noninvasively prior to conclusion of the procedure. Equipment used: Patient activated loop recorder: [employer]. Model number [id number]. Serial number [id number] Impression: Successful implantation of patient activated loop recorder I attest to the content of the Intraoperative Record and any orders documented therein. Any exceptions are noted below.
[2017-03-23 08:10] VITALS: BP 116/45; PULSE 60; TEMP 36.7; O2SAT 97
--- NOTE | 2017-03-23 08:13 | Discharge Instructions ---
Discharge Instructions Procedure Procedure Date: Mar 23, 2017. Reason for Visit: Syncope. Discharge Discharge Date: Mar 23, 2017. Discharge Diagnosis: syncope. s/p implant of loop recorder Anesthesia Post Anesthesia Instructions: If you have had General Anesthesia or IV Sedation: * Do not drive today. * Resume driving when surgeon permits. * Do not make important decisions or sign legal documents today. * Call surgeon for: 1. Temperature elevations greater than 101 degrees F. 2. Uncontrollable pain. 3. Excessive bleeding. 4. Persistent nausea and vomiting. 5. Medication intolerance (nausea, vomiting or rash). * For nausea and vomiting use only clear liquids such as: tea, soda, bouillon until nausea subsides, then gradually increase diet as tolerated. * If you have any concerns or questions, call your surgeon's office. If physician is unavailable and it is an emergency, call 911 or go to the nearest emergency room. Instructions Activity Recommendations: limitations as noted below Return to School/Work: with no limitations Recommended Home Diet: resume previous diet Allergies: Coded Allergies: No Known Allergies (Unverified , 02/03/17) Provider Instructions Keep wound dry and steri-strip intact until f/u. May remove bulky outer dressing tomorrow am. Follow Up Follow-up with: nurse wound check next week at [facility] Recommendations: Call your doctor if: * Temperature above 101 degrees * Pain not relieved by pain medicine ordered * There is increased drainage or redness from any incision * You have any unanswered questions or concerns. Your Doctors Instructions noted above were prepared by provider Alan Vásquez. Patient Signature Section: Patient Instructions Signature Page Aracelis Maxi Patient (or Guardian) Signature/Date: I have read and understand the instructions given to me by my caregivers. Caregiver/RN/Doctor Signature/Date: The above-named patient and/or guardian has received patient instructions on this date. + Original Patient Signature Page (only) stays with chart. Please make copy for patient.
[2017-03-23 08:30] VITALS: BP 128/48; PULSE 60; TEMP 36.7; O2SAT 97
== END | disposition home or self-care (01) ==
LOC: C.ACU 06:24
PROVIDERS: ATTEND Internal Medicine Clinical Cardiac Electrophysiology
DX: R55 Syncope and collapse (principal); K55.8 Other vascular disorders of intestine; E78.00 Pure hypercholesterolemia, unspecified; M85.80 Other specified disorders of bone density and structure, unspecified site; R91.1 Solitary pulmonary nodule; Z87.891 Personal history of nicotine dependence

== ENCOUNTER → 2017-08-08 | Outpatient (CLI) | payer OTHER, MEDICARE ==
[~2017-08-08] MED LIST changes: -CEFAZOLIN 1000MG IV PUSH 5 ML IV SCH; -LACTATED RINGER'S 1000ML IV SCH; -LIDOCAINE HCL 1% 20 ML VIAL ONE
--- NOTE | 2017-08-08 15:03 | DIAGNOSTIC IMAGING REPORT ---
(CHEST) THORAX WITHOUT CLINICAL HISTORY: 72 years-old Female presenting with R91.1 Pulmonary nodule, [id number] Pulmonary nodule, [id number]. TECHNIQUE: Multidetector CT imaging of the chest was performed without the use of intravenous contrast. IV contrast: None. A dose lowering technique was used consistent with the principles of ALARA (as low as reasonably achievable). COMPARISON: 08/11/2016. CT DOSE (mGy.cm): The estimated cumulative dose is 183.43 mGy.cm. 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 On soft tissue windows, implanted director medical surgical in the medial left breast post surgical changes of the medial left breast and left axilla surgical clips evident. Normal thyroid. No axillary, supraclavicular, or mediastinal lymphadenopathy. Evaluation of the brittany limited without intravenous contrast. Atherosclerosis of the aorta. Normal heart size. No pericardial or pleural effusion. Hypodensity in the left hepatic lobe, indeterminate but likely hepatic cyst or hamartoma. On lung windows, reticular opacities anteriorly at the left apex with associated architectural distortion in a distribution that is subjacent to the postsurgical changes of the medial left breast, likely postradiation fibrosis. Minimal bandlike opacities in the right middle lobe likely atelectasis or scarring. Similar atelectasis or scarring noted in the azygos esophageal recess of the right lower lobe. Minimal peripheral dependent punctate nodular and vague opacities may relate to atelectasis. No new nodule. Central airways patent. On bone windows, degenerative changes of the spine. IMPRESSION: 1. Post radiation changes at the left apex. No suspicious nodule. 2. Postsurgical and posttreatment changes of the left breast and left axilla. 3. No lymphadenopathy allowing for noncontrast technique. Electronically signed by: Mark Kennedy M.D. 08/08/2017 3:02 PM Dictated Date/Time: 08/08/2017 2:55 PM
== END | disposition home or self-care (01) ==
LOC: C.CTS 14:28
PROVIDERS: ATTEND Physician Assistant
DX: R91.1 Solitary pulmonary nodule (principal); Z85.3 Personal history of malignant neoplasm of breast; Z92.3 Personal history of irradiation